=== PATIENT | female | born 1940 | race Caucasian/White ===

== ENCOUNTER 2017-07-25 23:37 | Observation (INO) | payer MEDICARE ==
--- OUTSIDE RECORDS SUMMARY | 2017-07-25 23:47 | XMS REPORT ---
:1940 External Reference #:[id number] Author Organization [facility] Address [address] [address] Phone [phone] Care Team Providers Name Role Phone Sonali Foster MD Primary Care Physician Unavailable Payers Type Date Identification Numbers Payment Provider Subscriber Health Maintenance Policy Number: Medicare Blue Ppo [facility] ([facility]) [id number] PayID: [id number] [facility] [address] [address] [address] Health Maintenance Effective: Policy Number: Medicare Do IT [employer] [facility] [address] ([facility]) 05/07/2011 [id number] [facility] Expires: 08/06/2014 PayID: [id number] [facility] [id number] [address] [id number] Problems Date Description Provider Status Onset: 08/12/2011 Acquired trigger finger Mavis Flower M.D. Active Onset: 08/12/2011 Personal history of primary Lizbet Christian M.D. 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 Active Onset: 08/12/2011 Generalized anxiety disorder Lizbet Christian M.D. Active Onset: 06/28/2016 History of malignant basal cell Sonali Foster M.D. Active neoplasm of skin Note: Anand Burks Onset: 06/28/2016 Hyperlipidemia Sonali Foster M.D. Active Onset: 10/25/2016 Lymphocytic-plasmacytic colitis Sonali Foster M.D. Active Onset: 12/20/2016 Osteopenia Sonali Foster M.D. Active Onset: 11/09/2011 Diarrhea Ana Krzysztof, Resolved N.P. 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 Cigarette Use Never Smoked Cigarettes ETOH Use Rarely consumes alcohol Smoking Patient has never smoked Exercise Type/Frequency Exercises regularly General Hx Text retired att [place] cig no etoh occas exercise walk no illegal drugs caffiene 1 cup Allergies, Adverse Reactions, Alerts Date Description Reaction Status Severity Comments 06/02/2011 NKDA active Medications Medication Date Status Form Strength Qnty SIG Indications Ordering Provider Memantine HCL 10/10 Active Tablets 10mg 180ta 1 by bs mouth two yunior Brown MD daily Donepezil HCL 12/25 Active Tablets 10mg 90tab 1 by Yudi El s mouth Kacy every day M.DEl Simvastatin 01/09 Active Tablets 20mg 90tab Take 1 Sonali /2012 s Tablet Cristian Every Day M.DEl Senior Multivitamin Active Tablets one by Unknown Plus / mouth every day Fish Oil Active Capsules 1200mg 1 po qd Citalopram Active Tablets 40mg 90tab take 1 Sonali Hydrobromide s tablet by cayetano Foster M.DEl every day Pepto-Bismol Active Tablets 262mg Replaced with Budestero ne---2-3 tabs bid Vitamin D-3 Active Capsules 1000Unit 2 by Unknown / mouth every day Budesonide Active Caps DR 3mg one tab Issue, Part bid MARY Avila Azithromycin 07/06 Hx Tablets 250mg 6tabs take 2 J40 tab on Foster, - day 1 M.D. 07/11 then tab daily x 4 days Azithromycin 12/27 Hx Tablets 250mg 6tabs take 2 J40 tab on Foster, - day 1 M.D. 07/06 then tab daily x 4 days Donepezil HCL 09/22 Hx Tablets 5mg 90tab 1 every Yudi Herrera s day Neeraj Woodruff M.D. 12/05 Ciprofloxacin HCL 03/15 Hx Tablets 250mg 14tab take one R35.0 s tablet Johnny, WARM IN WORKER - twice a 03/25 day for days. Trisha Marcum 01/12 Hx Capsules 100mg 14cap 1 tab by J20.9 s mouth Foster, - daily for M.D. 03/15 Azithromycin 01/12 Hx Tablets 250mg 6tabs take 2 J20.9 tab on Foster, - day 1 M.D. 03/15 then tab daily x 4 days Hydrochlorothiazide 10/14 Hx Tablets 25mg 14tab 1 by R42 s mouth Gino, - every day M.D. 01/12 Vitamin D 10/07 Hx Tablets 1000Unit 2 tab Lizbet (Cholecalciferol) each day Gino, - by mouth M.D. 07/06 after 8 weeks. Meclizine HCL 10/05 Hx Tablets 25mg 30tab 1 tab by R42 s mouth deon Christian, - per day M.D. 06/27 Tamiflu 09/04 Hx Capsules 75mg 10cap 1 by R50.9 s mouth Gino, - twice a M.D. Ciprofloxacin HCL 09/04 Hx Tablets 250mg 10tab one by N39.0 s mouth Gino, - twice a M.D. 09/08 day for days Vitamin D3 06/19 Hx Capsules [id number] 8caps 1 tab by Lizbet mouth Gino, - once per M.D. 10/07 week, weeks, then follow up for blood test Meclizine HCL 02/13 Hx Tablets 25mg 30tab 1 tab by 780.4 Lizbet /2014 s mouth deon Christian, - per day M.D. 06/07 Namenda XR 12/26 Hx Caps ER 28mg 90cap 1 by R41.1 Yudi Herrera 24HR s mouth Kacy, - every day M.D. 10/09 Donepezil HCL 06/20 Hx Tablets 5mg 180ta 10 mgs by Yudi Herrera Neeraj Nuñez every day Tan 12/25 directed Omeprazole 01/30 Hx Capsules 40mg 180ca 1 po bid 530.81 Neeraj Tilley M.D. 01/18 Ferrous Gluconate 01/25 Hx 240mg 30uni 1 qd 285.8 Neeraj Cabrera M.D. 03/30 Ferrous Gluconate 01/25 Hx Tablets 225(27Fe) 60tab 1 tab po 285.8 mg s every day Neeraj Christian M.D. 12/24 Crestor 10/10 Hx Tablets 10mg 30tab 1 po qd Neeraj Cervantes M.D. 10/10 Simvastatin 10/10 Hx Tablets 10mg 90tab 1 po qhs Neeraj Cervantes M.D. 01/09 Augmentin 08/16 Hx Tablets 875-125mg 20tab 1 po 2x s per day Neeraj Christian M.D. 11/08 Pertussin 8 Hour 08/12 Hx Syrup 15mg/5ML using generic Neeraj Christian M.D. 11/08 Two TBLS at night. Donepezil HCL Hx Tablets 10mg 30tab po qpm Unknown / s - 09/25 Anastrozole Hx Tablets 1mg 90tab 1 po qd Lizbet /0000 Neeraj Cervantes M.D. 01/25 Lisinopril Hx Tablets 5mg 90tab 1 by Sonali /0000 eduard Foster, - every day Tan 06/07 Aspirin Hx Chewtabs 81mg 100un 1 po qd Unknown / its - 07/19 Calcium 500/D Hx Chewtabs 500-400mg 1 po pm Unknown / -Unit - 07/19 Fish Oil Hx Capsules 1200mg 1 po 3x a Unknown day - 07/19 Namenda Hx Tablets 10mg 180ta 1 po bid Yudi M. Neeraj May M.D. 06/07 Calcium 500/Vitamin Hx Tablets 500-400mg 60tab 1 po qd Unknown D3 /0000 -Unit s - 06/07 Ferrous Gluconate Hx Tablets 4O 100ta 1 by Unknown /0000 bs mouth - every day 12/05 Tylenol Hx Tablets 500mg as needed Unknown /0000 - 10/14 Day Time/Nite Time Hx Misc (Liquid) Unknown Cold & Flu /0000 Relief - 06/27 Loperamide HCL Hx Capsules 2mg take one Sonali / capsule Foster, - by mouth M.D. 12/05 every hours as needed Budesonide Hx Caps DR 3mg 3 by Unknown / Part mouth - every day 12/27 Medications Administered in Office Medication Date Status Form Strength Qnty SIG Indications Ordering Provider Celestone 3 Administered Injection Mavis mg and 3mg 011 Tan Flower Celestone 3 Administered Injection Moravian H. mg and 3mg 011 Kathya, R.P.A.-C Celestone 3 Administered Injection Moravian H. mg and 3mg 011 Mckeithfannie, R.P.A.-C Immunizations CPT Code Status Date Vaccine Lot # [id number] Given 04/25/2017 Influenza Virus Vaccine, Quadrivalent, Split, [id number] Preservative Free [id number] Given 06/28/2016 Pneumonia Vaccine [id number] 39232 Given 05/20/2016 Influenza Virus Vaccine, Quadrivalent, Split [id number] Virus, [place] Use [address] Given 06/18/2015 Influenza Virus Vaccine, Quadrivalent, Split, [id number] Preservative Free 08146 Given 06/18/2015 Pneumococcal Conjugate Vaccine 13 Valent For [id number] Intramuscular Use 22668 Given 06/17/2014 Flu Vaccine Split Virus Preservative Free For Indiv 3Yr Older [id number] Given 06/17/2014 Flu Vaccine Split Virus Preservative Free For [id number] Indiv 3Yr Older 91756 Given 05/21/2013 Flu Vaccine Split Virus Preservative Free For [id number] Indiv 3Yr Older 03980 Given 02/26/2013 Tdap - Tetanus/Diptheria/Acellular Pertussis [id number] 74399 Given 12/20/2012 Zoster (Zostavax) [id number] Q2038 Given 05/04/2012 Fluzone Vaccine [id number] Given 06/02/2011 Fluzone Vaccine Vital Signs Date Vital Result Comment 07/18/2017 Height 62 inches 5'2" Weight 140.00 lb Heart Rate 70 /min BP Systolic Sitting 132 mmHg BP Diastolic Sitting 80 mmHg Respiratory Rate 16 /min BMI (Body Mass Index) 25.6 kg/m2 07/06/2017 Weight 141.38 lb Heart Rate 68 /min BP Systolic Sitting 126 mmHg BP Diastolic Sitting 68 mmHg Body Temperature 98.0 F O2 % BldC Oximetry 97 % 12/27/2016 Height 62 inches 5'2" Weight 140.00 lb Heart Rate 60 /min BP Systolic Sitting 150 mmHg BP Diastolic Sitting 82 mmHg Respiratory Rate 14 /min BMI (Body Mass Index) 25.6 kg/m2 12/27/2016 Weight 142.00 lb Heart Rate 64 /min BP Systolic Sitting 130 mmHg BP Diastolic Sitting 82 mmHg Respiratory Rate 14 /min Body Temperature 97.0 F O2 % BldC Oximetry 98 % 12/05/2016 Weight 139.00 lb Heart Rate 67 /min BP Systolic 120 mmHg BP Diastolic 78 mmHg Body Temperature 98.7 F O2 % BldC Oximetry 97 % 08/25/2016 Weight 143.00 lb Heart Rate 54 /min BP Systolic Sitting 130 mmHg BP Diastolic Sitting 84 mmHg Respiratory Rate 15 /min Body Temperature 97.0 F O2 % BldC Oximetry 98 % 06/28/2016 Weight 144.00 lb Heart Rate 60 /min BP Systolic Sitting 128 mmHg BP Diastolic Sitting 86 mmHg Body Temperature 98.0 F O2 % BldC Oximetry 98 % 06/28/2016 Height 63 inches 5'3" Weight 144.00 lb Heart Rate 64 /min BP Systolic Sitting 132 mmHg BP Diastolic Sitting 78 mmHg BMI (Body Mass Index) 25.5 kg/m2 03/15/2016 Weight 147.00 lb Heart Rate 52 /min BP Systolic Sitting 122 mmHg BP Diastolic Sitting 82 mmHg Respiratory Rate 15 /min Body Temperature 98.2 F O2 % BldC Oximetry 98 % 01/13/2016 Weight 148.00 lb Heart Rate 65 /min BP Systolic Sitting 128 mmHg BP Diastolic Sitting 78 mmHg Respiratory Rate 16 /min Body Temperature 98.0 F O2 % BldC Oximetry 95 % 12/24/2015 Height 63 inches 5'3" Weight 145.00 lb Heart Rate 93 /min BP Systolic Sitting 144 mmHg BP Diastolic Sitting 79 mmHg Body Temperature 97.7 F BMI (Body Mass Index) 25.7 kg/m2 12/24/2015 Height 63 inches 5'3" Weight 145.00 lb Heart Rate 68 /min BP Systolic Sitting 118 mmHg BP Diastolic Sitting 86 mmHg Respiratory Rate 14 /min BMI (Body Mass Index) 25.7 kg/m2 10/15/2015 Height 63 inches 5'3" Weight 141.00 lb Heart Rate 71 /min BP Systolic 133 mmHg BP Diastolic 81 mmHg Body Temperature 98.6 F O2 % BldC Oximetry 95 % BMI (Body Mass Index) 25.0 kg/m2 09/08/2015 Height 63 inches 5'3" Weight 141.00 lb Heart Rate 54 /min BP Systolic Sitting 94 mmHg BP Diastolic Sitting 68 mmHg Body Temperature 97.1 F O2 % BldC Oximetry 98 % BMI (Body Mass Index) 25.0 kg/m2 09/04/2015 Height 63 inches 5'3" Weight 142.00 lb Heart Rate 83 /min BP Systolic 138 mmHg BP Diastolic 73 mmHg Body Temperature 100.1 F O2 % BldC Oximetry 98 % BMI (Body Mass Index) 25.2 kg/m2 06/25/2015 Height 63 inches 5'3" Weight 143.00 lb Heart Rate 68 /min BP Systolic Sitting 130 mmHg BP Diastolic Sitting 74 mmHg Respiratory Rate 16 /min BMI (Body Mass Index) 25.3 kg/m2 06/18/2015 Height 63 inches 5'3" Weight 142.00 lb Heart Rate 69 /min BP Systolic 122 mmHg BP Diastolic 68 mmHg Body Temperature 97.8 F O2 % BldC Oximetry 98 % BMI (Body Mass Index) 25.2 kg/m2 12/18/2014 Height 63 inches 5'3" Weight 142.00 lb Heart Rate 64 /min BP Systolic Sitting 138 mmHg BP Diastolic Sitting 78 mmHg Respiratory Rate 16 /min BMI (Body Mass Index) 25.2 kg/m2 12/16/2014 Height 63 inches 5'3" Weight 143.00 lb Heart Rate 73 /min BP Systolic Sitting 132 mmHg BP Diastolic Sitting 70 mmHg Body Temperature 97.9 F O2 % BldC Oximetry 95 % BMI (Body Mass Index) 25.3 kg/m2 07/24/2014 Weight 144.00 lb Heart Rate 64 /min BP Systolic Sitting 120 mmHg BP Diastolic Sitting 66 mmHg Body Temperature 97.3 F 06/26/2014 Height 62.5 inches 5'2.50" Weight 139.00 lb Heart Rate 68 /min BP Systolic Sitting 122 mmHg BP Diastolic Sitting 60 mmHg Respiratory Rate 16 /min BMI (Body Mass Index) 25.0 kg/m2 02/13/2014 Weight 141.00 lb Heart Rate 66 /min BP Systolic Sitting 128 mmHg BP Diastolic Sitting 74 mmHg 02/04/2014 Weight 140.00 lb Heart Rate 68 /min BP Systolic Sitting 132 mmHg BP Diastolic Sitting 80 mmHg 12/26/2013 Height 62.5 inches 5'2.50" Weight 137.00 lb Heart Rate 76 /min BP Systolic Sitting 122 mmHg BP Diastolic Sitting 68 mmHg Respiratory Rate 16 /min BMI (Body Mass Index) 24.7 kg/m2 12/24/2013 Height 62.5 inches 5'2.50" Weight 140.25 lb Heart Rate 77 /min BP Systolic Sitting 104 mmHg BP Diastolic Sitting 56 mmHg O2 % BldC Oximetry 95 % BMI (Body Mass Index) 25.2 kg/m2 12/12/2013 Height 62.5 inches 5'2.50" Weight 142.50 lb Heart Rate 60 /min BP Systolic Sitting 110 mmHg BP Diastolic Sitting 58 mmHg Body Temperature 98.0 F O2 % BldC Oximetry 95 % BMI (Body Mass Index) 25.6 kg/m2 08/22/2013 Height 62.5 inches 5'2.50" Weight 139.00 lb Heart Rate 72 /min BP Systolic Sitting 117 mmHg BP Diastolic Sitting 79 mmHg BMI (Body Mass Index) 25.0 kg/m2 06/10/2013 Heart Rate 70 /min BP Systolic Sitting 130 mmHg BP Diastolic Sitting 70 mmHg Respiratory Rate 18 /min 05/21/2013 Weight 139.00 lb Heart Rate 72 /min BP Systolic Sitting 121 mmHg BP Diastolic Sitting 74 mmHg 02/26/2013 Weight 135.00 lb Heart Rate 52 /min BP Systolic Sitting 112 mmHg BP Diastolic Sitting 62 mmHg 01/18/2013 Weight 134.75 lb Heart Rate 59 /min BP Systolic Sitting 113 mmHg BP Diastolic Sitting 68 mmHg 12/20/2012 Weight 133.25 lb Heart Rate 65 /min BP Systolic Sitting 112 mmHg BP Diastolic Sitting 68 mmHg 12/04/2012 Height 62.5 inches 5'2.50" Weight 131.50 lb Heart Rate 66 /min BP Systolic Sitting 112 mmHg BP Diastolic Sitting 67 mmHg BMI (Body Mass Index) 23.7 kg/m2 07/19/2012 Height 62.5 inches 5'2.50" Weight 130.00 lb Heart Rate 68 /min BP Systolic Sitting 112 mmHg BP Diastolic Sitting 56 mmHg BMI (Body Mass Index) 23.4 kg/m2 03/30/2012 Height 62.5 inches 5'2.50" Weight 140.00 lb Heart Rate 68 /min BP Systolic Sitting 114 mmHg BP Diastolic Sitting 58 mmHg BMI (Body Mass Index) 25.2 kg/m2 01/31/2012 Height 62.5 inches 5'2.50" Weight 137.00 lb Heart Rate 69 /min BP Systolic Sitting 115 mmHg BP Diastolic Sitting 64 mmHg BMI (Body Mass Index) 24.7 kg/m2 01/26/2012 Height 62.5 inches 5'2.50" Weight 130.00 lb Heart Rate 74 /min BP Systolic Sitting 110 mmHg BP Diastolic Sitting 70 mmHg BMI (Body Mass Index) 23.4 kg/m2 12/02/2011 Height 62.5 inches 5'2.50" Weight 139.00 lb Heart Rate 76 /min BP Systolic Sitting 144 mmHg BP Diastolic Sitting 64 mmHg BMI (Body Mass Index) 25.0 kg/m2 11/09/2011 Height 62.5 inches 5'2.50" Weight 142.00 lb Heart Rate 67 /min BP Systolic Sitting 113 mmHg BP Diastolic Sitting 65 mmHg Body Temperature 98.0 F BMI (Body Mass Index) 25.6 kg/m2 10/06/2011 Height 62.5 inches 5'2.50" Weight 146.00 lb Heart Rate 68 /min BP Systolic Sitting 142 mmHg BP Diastolic Sitting 80 mmHg BMI (Body Mass Index) 26.3 kg/m2 08/12/2011 Height 62.5 inches 5'2.50" Weight 146.25 lb Heart Rate 96 /min BP Systolic Sitting 130 mmHg BP Diastolic Sitting 64 mmHg Body Temperature 99.9 F BMI (Body Mass Index) 26.3 kg/m2 06/02/2011 Height 63 inches 5'3" Weight 147.00 lb Heart Rate 64 /min BP Systolic Sitting 139 mmHg BP Diastolic Sitting 82 mmHg BMI (Body Mass Index) 26.0 kg/m2 Results Test Date Test Result H/L Range Note Pthi 12/24/2016 Calcium (PTH Intact) 8.6 mg/dL 8.6-10.3 PTH Intact 7.7 pmol/L 1.3-9.3 Comp Metabolic Panel 12/24/2016 Sodium 141 mmol/L 133-145 Potassium 4.2 mmol/L 3.5-5.0 Chloride 106 mmol/L 101-111 Co2 Carbon Dioxide 30 mmol/L 22-32 Anion Gap 5 mmol/L 2-11 Glucose 78 mg/dL 70-100 Blood Urea Nitrogen 13 mg/dL 6-24 Creatinine 0.82 mg/dL 0.51-0.95 BUN/Creatinine Ratio 15.9 8-20 Calcium 8.7 mg/dL 8.6-10.3 Total Protein 6.6 g/dL 6.4-8.9 Albumin 3.7 g/dL 3.2-5.2 Globulin 2.9 g/dL 2-4 Albumin/Globulin Ratio 1.3 1-3 Total Bilirubin 0.50 mg/dL 0.2-1.0 Alkaline Phosphatase 58 U/L 34-104 Alt 18 U/L 7-52 Ast 16 U/L 13-39 Egfr Non- 68.0 >60 Egfr 87.4 >60 1 Lipid Profile (Trig/Chol/HDL) 12/24/2016 Triglycerides 72 mg/dL 2 Cholesterol 179 mg/dL 3 HDL Cholesterol 69.1 mg/dL 4 LDL Cholesterol 96 mg/dL 5 Laboratory test 12/24/2016 Vitamin D Total 27.1 ng/mL Low 30-50 finding 25(Oh) Laboratory test 10/10/2016 Surgical Pathology SEE RESULT BELOW 6, 7 finding Laboratory test 08/29/2016 C Difficile PCR SEE RESULT BELOW 8 finding O&P Ova & 08/26/2016 Ova Parasite SEE RESULT BELOW 9 Parasites Full [place] Full Laboratory test 08/26/2016 Stool Culture SEE RESULT BELOW 10 finding Parasitic Examination See Comment 11 Urinalysis Profile 04/14/2016 Urine Color Yellow Urine Appearance Clear Urine Specific [place] 1.009 Low 1.010-1.030 Urine pH 8.0 5-9 Urine Urobilinogen Negative Negative Urine Ketones Negative Negative Urine Protein Negative Negative Urine Leukocytes 1+ Negative Urine Blood Negative Negative * * Negative 12 Urine Nitrite Negative Negative Urine Bilirubin Negative Negative Urine Glucose Negative Negative Urine White Blood Cell Trace(0-5/hpf) Absent Urine Red Blood Cell Trace(0-2/hpf) Absent Urine Bacteria Absent Absent Urine Squamous Epithelial Cell Present Absent Urine Culture And 04/14/2016 Urine Culture SEE RESULT BELOW 13 Sensitivities Urine Culture And 03/15/2016 Urine Culture SEE RESULT BELOW 14 Sensitivities Ua Routine 03/15/2016 Ua Specific [place] 1.005 Ua PH 8 Ua Color yellow Ua Appera cloudy Ua WBC xlg Ua Protein neg Ua Glucose neg Ua Ketones neg Ua Bilirubin neg Ua Urobilinogen neg Ua Nitrite n eg Ua Occult Blood large Lipid Profile (Trig/Chol/HDL) 01/11/2016 Triglycerides 103 mg/dL 15 Cholesterol 169 mg/dL 16 HDL Cholesterol 60.3 mg/dL 17 LDL Cholesterol 88 mg/dL 18 Laboratory test 01/11/2016 Vitamin D Total 33.4 ng/mL 30-50 19 finding 25(Oh) Laboratory test 11/06/2015 Surgical Pathology SEE RESULT BELOW 20 finding CBC Auto Diff 10/15/2015 White Blood Count 6.1 10^3/uL 3.5-10.8 Red Blood Count 4.44 10^6/uL 4.0-5.4 Hemoglobin 13.1 g/dL 12.0-16.0 Hematocrit 38 % 35-47 Mean Corpuscular Volume 86 fL 80-97 Mean Corpuscular Hemoglobin 30 pg 27-31 Mean Corpuscular HGB Conc 34 g/dL 31-36 Red Cell Distribution Width 15 % 10.5-15 Platelet Count 281 10^3/uL 150-450 Mean Platelet Volume 8 um3 7.4-10.4 Abs Neutrophils 3.4 10^3/uL 1.5-7.7 Abs Lymphocytes 1.7 10^3/uL 1.0-4.8 Abs Monocytes 0.8 10^3/uL 0-0.8 Abs Eosinophils 0.2 10^3/uL 0-0.6 Abs Basophils 0.1 10^3/uL 0-0.2 Abs Nucleated RBC 0.01 10^3/uL Granulocyte % 56.3 % 38-83 Lymphocyte % 27.3 % 25-47 Monocyte % 12.4 % High 1-9 Eosinophil % 3.1 % 0-6 Basophil % 0.9 % 0-2 Nucleated Red Blood Cells % 0.1 Comp Metabolic Panel 10/15/2015 Sodium 139 mmol/L 133-145 Potassium 4.2 mmol/L 3.5-5.0 Chloride 100 mmol/L Low 101-111 Co2 Carbon Dioxide 31 mmol/L 22-32 Anion Gap 8 mmol/L 2-11 Glucose 83 mg/dL 70-100 Blood Urea Nitrogen 12 mg/dL 6-24 Creatinine 0.78 mg/dL 0.51-0.95 BUN/Creatinine Ratio 15.4 8-20 Calcium 9.6 mg/dL 8.6-10.3 Total Protein 6.9 g/dL 6.4-8.9 Albumin 4.0 g/dL 3.2-5.2 Globulin 2.9 g/dL 2-4 Albumin/Globulin Ratio 1.4 1-3 Total Bilirubin 0.60 mg/dL 0.2-1.0 Alkaline Phosphatase 66 U/L 34-104 Alt 16 U/L 7-52 Ast 18 U/L 13-39 Egfr Non- 72.2 >60 Egfr 92.8 >60 21 Laboratory test finding 10/15/2015 TSH (Thyroid Stim Horm) 4.73 ?IU/mL 0.34-5.60 Iron & Iron Binding 10/15/2015 Iron 81 g/dL 50-212 Capacity Unsaturated Iron Binding 251 g/dL Total Iron Binding Capacity 332 g/dL 250-450 % Iron Saturation 24 % 15-55 Rapid Influenza A & B 09/04/2015 Influenza A Molecular NEGATIVE Negative 22 Molecular Influenza B Molecular NEGATIVE Negative Laboratory test finding 09/04/2015 Influenza A & B SEE RESULT BELOW 23 Request Ua And Culture 09/04/2015 Urine Culture And SEE RESULT BELOW 24 Sensitivity Sensitivities Urinalysis Profile 09/04/2015 Urine Color Yellow Urine Appearance Cloudy Urine Specific [place] 1.016 1.010-1.030 Urine pH 5.0 5-9 Urine Urobilinogen Negative Negative Urine Ketones Negative Negative Urine Protein Negative Negative Urine Leukocytes 1+ Negative Urine Blood 1+ Negative * * Negative 25 Urine Nitrite Negative Negative Urine Bilirubin Negative Negative Urine Glucose Negative Negative Urine White Blood Cell 1+(6-10/hpf) Absent Urine Red Blood Cell 1+(3-5/hpf) Absent Urine Bacteria Absent Absent Urine Squamous Epithelial Cell Present Absent Urine Amorphous Crystals Present Absent Ua Routine 09/04/2015 Ua Specific [place] 1.020 Ua PH 5 Ua Color yellow Ua Appera cloudy Ua WBC ++ Ua Protein trace Ua Glucose neg Ua Ketones neg Ua Bilirubin neg Ua Urobilinogen normal Ua Nitrite neg Ua Occult Blood about 50 Laboratory test 08/17/2015 Vitamin D Total 25(Oh) 61.9 ng/mL High 30-50 finding Laboratory test 06/18/2015 Vitamin D Total 25(Oh) 25.0 ng/mL Low 30-50 finding Lipid Profile 12/10/2014 Triglycerides 82 mg/dL 26, 27 (Trig/Chol/HDL) Cholesterol 166 mg/dL 26, 28 HDL Cholesterol 62.9 mg/dL 26, 29 LDL Cholesterol 87 mg/dL 26, 30 Comp Metabolic Panel 12/10/2014 Sodium 138 mmol/L 133-145 26 Potassium 4.1 mmol/L 3.5-5.0 26 Chloride 105 mmol/L 101-111 26 Co2 Carbon Dioxide 26 mmol/L 22-32 26 Anion Gap 7 mmol/L 2-11 26 Glucose 90 mg/dL 70-100 26 Blood Urea Nitrogen 13 mg/dL 6-24 26 Creatinine 0.86 mg/dL 0.51-0.95 26 BUN/Creatinine Ratio 15.1 8-20 26 Calcium 8.9 mg/dL 8.6-10.3 26 Total Protein 6.8 g/dL 6.4-8.9 26 Albumin 4.1 g/dL 3.2-5.2 26 Globulin 2.7 g/dL 2-4 26 Albumin/Globulin Ratio 1.5 1-3 26 Total Bilirubin 0.70 mg/dL 0.2-1.0 26 Alkaline Phosphatase 53 U/L 34-104 26 Alt 15 U/L 7-52 26 Ast 18 U/L 13-39 26 Egfr Non- 64.7 >60 26 Egfr 83.2 >60 26, 31 CBC Auto Diff 12/10/2014 White Blood Count 5.0 10^3/uL 4.8-10.8 26 Red Blood Count 4.55 10^6/uL 4.0-5.4 26 Hemoglobin 13.9 g/dL 12.0-16.0 26 Hematocrit 41 % 35-47 26 Mean Corpuscular Volume 89 fL 80-97 26 Mean Corpuscular Hemoglobin 31 pg 27-31 26 Mean Corpuscular HGB Conc 34 g/dL 31-36 26 Red Cell Distribution Width 14 % 10.5-15 26 Platelet Count 250 10^3/uL 150-450 26 Mean Platelet Volume 8 um3 7.4-10.4 26 Abs Neutrophils 3.0 10^3/uL 1.5-7.7 26 Abs Lymphocytes 1.2 10^3/uL 1.0-4.8 26 Abs Monocytes 0.6 10^3/uL 0-0.8 26 Abs Eosinophils 0.1 10^3/uL 0-0.6 26 Abs Basophils 0.1 10^3/uL 0-0.2 26 Abs Nucleated RBC 0 10^3/uL 26 Granulocyte % 60.2 % 38-83 26 Lymphocyte % 23.9 % Low 25-47 26 Monocyte % 12.5 % High 1-9 26 Eosinophil % 2.4 % 0-6 26 Basophil % 1.0 % 0-2 26 Nucleated Red Blood Cells % 0 26 CBC With Manual Diff 01/31/2014 White Blood Count 5.3 10^3/uL 4.8-10.8 Red Blood Count 4.41 10^6/uL 4.0-5.4 Hemoglobin 13.4 g/dL 12.0-16.0 Hematocrit 39 % 35-47 Mean Corpuscular Volume 89 fL 80-97 Mean Corpuscular Hemoglobin 30 pg 27-31 Mean Corpuscular HGB Conc 34 g/dL 31-36 Red Cell Distribution Width 13 % 10.5-15 Platelet Count 236 10^3/uL 150-450 Mean Platelet Volume 8 um3 7.4-10.4 Abs Neutrophils 2.8 10^3/uL 1.5-7.7 Abs Lymphocytes 1.7 10^3/uL 1.0-4.8 Abs Monocytes 0.6 10^3/uL 0-0.8 Abs Eosinophils 0.2 10^3/uL 0-0.6 Abs Basophils 0 10^3/uL 0-0.2 Abs Nucleated RBC 0 10^3/uL Neutrophil % 63 % 38-83 Lymphocytes % 25 % 25-47 Monocytes % 8 % 0-13 Eosinophils % 3 % 0-6 Reactive Lymph % 1 % 0-6 RBC Morphology Normal Normal Laboratory test finding 01/31/2014 Ferritin 41.0 ng/mL 11-307 Vitamin D, 25 Hydroxy 12/12/2013 25-Hydroxy Vitamin D2 <4.0 ng/mL 25-Hydroxy Vitamin D3 46 ng/mL 25-Hydroxy Vitamin D Total 46 ng/mL 32 Vitamin D, 25 Hydroxy 08/26/2013 25-Hydroxy Vitamin D2 <4.0 ng/mL 25-Hydroxy Vitamin D3 28 ng/mL 25-Hydroxy Vitamin D Total 28 ng/mL 33 Lipid Profile (Trig/Chol/HDL) 08/26/2013 Triglycerides 47 mg/dL 40-200 Cholesterol 171 mg/dL Less than 200 HDL Cholesterol 74 mg/dL High 40-60 34 Cholesterol/HDL Ratio 2.3 Average 1-4.44 LDL Cholesterol 87.6 Less Than 100 35 Comp Metabolic Panel 08/22/2013 Sodium 139 mmol/L 133-145 Potassium 4.0 mmol/L 3.5-5.0 Chloride 103 mmol/L 101-111 Co2 Carbon Dioxide 28.0 mmol/L 22-32 Anion Gap 8.0 mmol/L 2-11 Glucose 104 mg/dL High 70-100 Blood Urea Nitrogen 14 mg/dL 6-24 Creatinine 0.90 mg/dL 0.50-1.40 BUN/Creatinine Ratio 15.6 8-20 Calcium 9.5 mg/dL 8.1-9.9 Total Protein 6.4 g/dL 6.2-8.1 Albumin 4.0 g/dL 3.2-5.2 Globulin 2.4 g/dL 2-4 Albumin/Globulin Ratio 1.7 1-3 Total Bilirubin 0.9 mg/dL 0.4-1.5 Alkaline Phosphatase 58 U/L 30-110 Alt 18 U/L 14-54 Ast 22 U/L 12-42 Egfr Non- 61.5 >60 Egfr 79.2 >60 36 CBC With Manual Diff 08/22/2013 White Blood Count 6.0 10^3/uL 4.8-10.8 Red Blood Count 4.60 10^6/uL 4.0-5.4 Hemoglobin 14.1 g/dL 12.0-16.0 Hematocrit 40 % 35-47 Mean Corpuscular Volume 87 fL 80-97 Mean Corpuscular Hemoglobin 31 pg 27-31 Mean Corpuscular HGB Conc 35 g/dL 31-36 Red Cell Distribution Width 14 % 10.5-15 Platelet Count 260 10^3/uL 150-450 Mean Platelet Volume 9 um3 7.4-10.4 Abs Neutrophils 4.0 10^3/uL 1.5-7.7 Abs Lymphocytes 1.1 10^3/uL 1.0-4.8 Abs Monocytes 0.6 10^3/uL 0-0.8 Abs Eosinophils 0.1 10^3/uL 0-0.6 Abs Basophils 0.1 10^3/uL 0-0.2 Abs Nucleated RBC 0 10^3/uL Neutrophil % 73 % 38-83 Band % 4 % 0-8 Lymphocytes % 15 % Low 25-47 Monocytes % 7 % 0-13 Eosinophils % 1 % 0-6 RBC Morphology Normal Normal CBC Auto Diff 05/21/2013 White Blood Count 6.7 10^3/uL 4.8-10.8 Red Blood Count 4.32 10^6/uL 4.0-5.4 Hemoglobin 13.5 g/dL 12.0-16.0 Hematocrit 39 % 35-47 Mean Corpuscular Volume 90 fL 80-97 Mean Corpuscular Hemoglobin 31 pg 27-31 Mean Corpuscular HGB Conc 35 g/dL 31-36 Red Cell Distribution Width 14 % 10.5-15 Platelet Count 257 10^3/uL 150-450 Mean Platelet Volume 9 um3 7.4-10.4 Abs Neutrophils 4.3 10^3/uL 1.5-7.7 Abs Lymphocytes 1.4 10^3/uL 1.0-4.8 Abs Monocytes 0.8 10^3/uL 0-0.8 Abs Eosinophils 0.1 10^3/uL 0-0.6 Abs Basophils 0.1 10^3/uL 0-0.2 Abs Nucleated RBC 0 10^3/uL Granulocyte % 64.9 % 38-83 Lymphocyte % 20.4 % Low 25-47 Monocyte % 11.7 % High 1-9 Eosinophil % 1.8 % 0-6 Basophil % 1.2 % 0-2 Nucleated Red Blood Cells % 0 Laboratory test 05/21/2013 TSH (Thyroid 2.94 miu/mL 0.34-5.60 finding Stimulating Horm) Laboratory test 01/18/2013 Surgical Pathology RUN DATE: finding <SEE NOTE> Comp Metabolic Panel 12/11/2012 Sodium 138 mmol/L 133-145 Potassium 4.1 mmol/L 3.5-5.0 Chloride 104 mmol/L 101-111 Co2 Carbon Dioxide 29.0 mmol/L 22-32 Anion Gap 5.0 mmol/L 2-11 Glucose 93 mg/dL 70-100 Blood Urea Nitrogen 17 mg/dL 6-24 Creatinine 0.80 mg/dL 0.50-1.40 BUN/Creatinine Ratio 21.3 High 8-20 Calcium 9.1 mg/dL 8.1-9.9 Total Protein 6.2 g/dL 6.2-8.1 Albumin 3.6 g/dL 3.2-5.2 Globulin 2.6 g/dL 2-4 Albumin/Globulin Ratio 1.4 1-3 Total Bilirubin 0.5 mg/dL 0.4-1.5 Alkaline Phosphatase 71 U/L 30-110 Alt 26 U/L 14-54 Ast 23 U/L 12-42 Egfr Non- 70.7 >60 Egfr 90.9 >60 38 Lipid Profile (Trig/Chol/HDL) 12/11/2012 Triglycerides 49 mg/dL 40-200 Cholesterol 168 mg/dL Less than 200 HDL Cholesterol 63 mg/dL High 40-60 39 Cholesterol/HDL Ratio 2.7 Average 1-4.44 LDL Cholesterol 95.2 mg/dL Less Than 100 40 Laboratory test finding 12/11/2012 Ferritin 43 ng/mL 11-307 CBC Auto Diff 12/11/2012 White Blood Count 5.2 10^3/uL 4.8-10.8 Red Blood Count 4.09 10^6/uL 4.0-5.4 Hemoglobin 12.6 g/dL 12.0-16.0 Hematocrit 37 % 35-47 Mean Corpuscular Volume 89 fL 80-97 Mean Corpuscular Hemoglobin 31 pg 27-31 Mean Corpuscular HGB Conc 34 g/dL 31-36 Red Cell Distribution Width 14 % 10.5-15 Platelet Count 218 10^3/uL 150-450 Mean Platelet Volume 8 um3 7.4-10.4 Abs Neutrophils 2.6 10^3/uL 1.5-7.7 Abs Lymphocytes 1.8 10^3/uL 1.0-4.8 Abs Monocytes 0.6 10^3/uL 0-0.8 Abs Eosinophils 0.1 10^3/uL 0-0.6 Abs Basophils 0.1 10^3/uL 0-0.2 Abs Nucleated RBC 0 10^3/uL Granulocyte % 49.7 % 38-83 Lymphocyte % 35.1 % 25-47 Monocyte % 12.3 % High 1-9 Eosinophil % 1.9 % 0-6 Basophil % 1.0 % 0-2 Nucleated Red Blood Cells % 0 Comp Metabolic Panel 07/20/2012 Sodium 138 mmol/L 133-145 Potassium 3.8 mmol/L 3.5-5.0 Chloride 102 mmol/L 101-111 Co2 Carbon Dioxide 30.0 mmol/L 22-32 Anion Gap 6.0 mmol/L 2-11 Glucose 112 mg/dL High 70-100 Blood Urea Nitrogen 7 mg/dL 6-24 Creatinine 0.80 mg/dL 0.50-1.40 BUN/Creatinine Ratio 8.8 8-20 Calcium 9.4 mg/dL 8.1-9.9 Total Protein 6.9 g/dL 6.2-8.1 Albumin 4.0 g/dL 3.2-5.2 Globulin 2.9 g/dL 2-4 Albumin/Globulin Ratio 1.4 1-3 Total Bilirubin 0.8 mg/dL 0.4-1.5 Alkaline Phosphatase 72 U/L 30-110 Alt 21 U/L 14-54 Ast 24 U/L 12-42 Egfr Non- 70.7 >60 Egfr 90.9 >60 41 Laboratory test finding 07/20/2012 Ferritin 60 ng/mL 11-307 Laboratory test finding 07/20/2012 Hemoglobin A1c 5.7 % Less than 6.0 42 CBC Auto Diff 07/20/2012 White Blood Count 5.9 10^3/uL 4.8-10.8 Red Blood Count 4.09 10^6/uL 4.0-5.4 Hemoglobin 12.5 g/dL 12.0-16.0 Hematocrit 36 % 35-47 Mean Corpuscular Volume 88 fL 80-97 Mean Corpuscular Hemoglobin 31 pg 27-31 Mean Corpuscular HGB Conc 35 g/dL 31-36 Red Cell Distribution Width 14 % 10.5-15 Platelet Count 241 10^3/uL 150-450 Mean Platelet Volume 8 um3 7.4-10.4 Abs Neutrophils 3.7 10^3/uL 1.5-7.7 Abs Lymphocytes 1.5 10^3/uL 1.0-4.8 Abs Monocytes 0.6 10^3/uL 0-0.8 Abs Eosinophils 0.1 10^3/uL 0-0.6 Abs Basophils 0 10^3/uL 0-0.2 Abs Nucleated RBC 0 10^3/uL Granulocyte % 62.3 % 38-83 Lymphocyte % 24.7 % Low 25-47 Monocyte % 10.1 % High 1-9 Eosinophil % 2.3 % 0-6 Basophil % 0.6 % 0-2 Nucleated Red Blood Cells % 0 Paraneoplastic Evaluation 06/20/2012 Paraneoplastic Ab Interp See Comment 43 Anti-Neuronal Nuclear Ab Type1 Negative titer <1:240 Anti-Neuronal Nuclear Ab Type2 Negative titer <1:240 Anti-Neuronal Nuclear Ab Type3 Negative titer <1:240 Anti-Glial/Neuronal Nuc Ab-1 A Negative titer <1:240 Purkinje Cell Cytoplasm Type 1 Negative titer <1:240 Purkinje Cell Cytoplasm Type 2 Negative titer <1:240 Purkinje Cell Cytoplasm Typ Tr Negative titer <1:240 Amphiphysin Antibody Negative titer <1:240 CRMP-5 IgG Antibody Negative titer 44 Anti-Striated Muscle Antibody Negative titer <1:60 Calcium Channel Binding Ab P/Q 0.00 nmol/L <=0.02 N Type Calcium Channel Binding 0.00 nmol/L <=0.03 ACh Receptor Muscle Binding Ab 0.00 nmol/L <=0.02 AChR Ganglionic Neuronal Ab 0.00 nmol/L <=0.02 Voltage-Gated Potassium Chann 0.00 nmol/L <=0.02 45 RBC Leukoreduced 04/13/2012 Patient Blood Type O POSITIVE Antibody Screen NEGATIVE CBC Auto Diff 03/31/2012 White Blood Count 6.7 CUMM 4.8-10.8 Red Cell Count 4.16 CUMM Low 4.2-5.4 Hemoglobin 12.7 g/dL 12.0-16.0 Hematocrit 36 % 35-47 Mean Corpuscular Volume 87 um3 79-97 Mean Corpuscular Hemoglob 31 pg 27-31 Mean Corpuscular HGB Cone 35 g/dL 32-36 Redcell Distribution WDTH 14 % 10.5-15 Platelet Count 215 CUMM 150-450 Mean Platelet Volume 8.4 um3 7.4-10.4 Gran % 56.8 % 38-83 Lymph % 28.1 % 20-45 Mononuclear % 12.1 % High 1-9 Eosinophil % 2.4 % 0-6 Basophil % 0.6 % 0-2 Abs Lymphs 1.9 1.0-4.8 Abs Mononuclear 0.8 0-0.8 Absolute Neutrophil Count 3.8 1.5-7.7 Abs Eosinophils 0.2 0-0.6 Abs Basophils 0 0-0.2 Laboratory test finding 03/31/2012 Ferritin 44 NG/ML 11.0-307 Lipid Profile (Trig/Chol/HDL) 03/31/2012 Triglyceride 58 mg/dL 40-200 Cholesterol 178 mg/dL Less Than 200 46 High Density Lipoprotein 55 mg/dL 40-60 47 Cholesterol/HDL Ratio 3.24 AVERAGE 1-4.44 Low Density Lipoprotein 111 mg/dL High Less Than 100 48 Comp Metabolic Panel 03/31/2012 Sodium 139 mmol/L 135-145 Potassium 4.3 mmol/L 3.5-5.0 Chloride 106 mmol/L 101-111 Co2 (Carbon Dioxide) 28.0 mmol/L 22-32 Anion Gap 5.0 mmol/L 2-11 49 Glucose 89 mg/dL 70-100 BUN 16 mg/dL 6-24 Creatinine 0.9 mg/dL 0.50-1.40 One Over Creatinine 1.11 BUN/Creatinine Ratio 17.8 8-20 Calcium 9.0 mg/dL 8.1-9.9 Total Protein 6.4 GM/DL 6.2-8.1 Albumin 3.6 GM/DL 3.2-5.2 Globulin 2.8 GM/DL 2-4 Albumin/Globulin Ratio 1.3 1-3 Bilirubin Total 0.7 mg/dL 0.4-1.5 50 Alkaline Phosphatase 70 U/L 30-110 Alt (SGPT) 42 U/L 14-54 Ast (Sgot) 34 U/L 12-42 eGFR Non- 61.9 > 60 eGFR 79.6 > 60 51 Laboratory test finding 01/28/2012 Ferritin 44 NG/ML 11.0-307 CBC Auto Diff 01/27/2012 White Blood Count 5.1 CUMM 4.8-10.8 Red Cell Count 3.70 CUMM Low 4.2-5.4 Hemoglobin 11.1 g/dL Low 12.0-16.0 Hematocrit 32 % Low 35-47 Mean Corpuscular Volume 87 um3 79-97 Mean Corpuscular Hemoglob 30 pg 27-31 Mean Corpuscular HGB Cone 35 g/dL 32-36 Redcell Distribution WDTH 14 % 10.5-15 Platelet Count 254 CUMM 150-450 Mean Platelet Volume 8.1 um3 7.4-10.4 Gran % 52.6 % 38-83 Lymph % 29.3 % 25-47 Mononuclear % 15.1 % High 1-9 Eosinophil % 2.5 % 0-6 Basophil % 0.5 % 0-2 Abs Lymphs 1.5 1.0-4.8 Abs Mononuclear 0.8 0-0.8 Absolute Neutrophil Count 2.7 1.5-7.7 Abs Eosinophils 0.1 0-0.6 Abs Basophils 0 0-0.2 52 Comp Metabolic Panel 01/27/2012 Sodium 137 mmol/L 135-145 Potassium 3.5 mmol/L 3.5-5.0 Chloride 104 mmol/L 101-111 Co2 (Carbon Dioxide) 27.0 mmol/L 22-32 Anion Gap 6.0 mmol/L 2-11 53 Glucose 94 mg/dL 70-100 BUN 12 mg/dL 6-24 Creatinine 0.7 mg/dL 0.50-1.40 One Over Creatinine 1.42 BUN/Creatinine Ratio 17.1 8-20 Calcium 8.8 mg/dL 8.1-9.9 Total Protein 6.3 GM/DL 6.2-8.1 Albumin 3.2 GM/DL 3.2-5.2 Globulin 3.1 GM/DL 2-4 Albumin/Globulin Ratio 1.0 1-3 Bilirubin Total 0.7 mg/dL 0.4-1.5 54 Alkaline Phosphatase 59 U/L 30-110 Alt (SGPT) 15 U/L 14-54 Ast (Sgot) 17 U/L 12-42 eGFR Non- 82.7 > 60 eGFR 106.4 > 60 55 Laboratory test finding 01/27/2012 CPK (Creatine Kinase) 66 U/L 0-170 CKMB 01/27/2012 CKMB In NG/ML 0.7 NG/ML 0.3-4.0 % CKMB 1 %MB 0-9 56 Laboratory test finding 01/27/2012 Myoglobin 14.20 NG/ML Low 14.3-65.8 Troponin-I 0 NG/ML 0-0.06 57 Laboratory test finding 01/09/2012 CA 125 (Ovarian Cancer Ag) 10.3 U/mL 2.0-35.0 58 Lipid Profile 01/06/2012 Triglyceride 81 mg/dL 40-200 (Trig/Chol/HDL) Cholesterol 212 mg/dL High Less Than 200 59 High Density Lipoprotein 72 mg/dL High 40-60 60 Cholesterol/HDL Ratio 2.94 AVERAGE 1-4.44 Low Density Lipoprotein 124 mg/dL High Less Than 100 61 Comp Metabolic Panel 12/19/2011 Sodium 136 mmol/L 135-145 Potassium 4.2 mmol/L 3.5-5.0 Chloride 105 mmol/L 101-111 Co2 (Carbon Dioxide) 27.0 mmol/L 22-32 Anion Gap 4.0 mmol/L 2-11 62 Glucose 93 mg/dL 70-100 BUN 15 mg/dL 6-24 Creatinine 0.8 mg/dL 0.50-1.40 One Over Creatinine 1.25 BUN/Creatinine Ratio 18.8 8-20 Calcium 9.1 mg/dL 8.1-9.9 Total Protein 6.7 GM/DL 6.2-8.1 Albumin 3.7 GM/DL 3.2-5.2 Globulin 3.0 GM/DL 2-4 Albumin/Globulin Ratio 1.2 1-3 Bilirubin Total 0.7 mg/dL 0.4-1.5 63 Alkaline Phosphatase 63 U/L 30-110 Alt (SGPT) 20 U/L 14-54 Ast (Sgot) 21 U/L 12-42 eGFR Non- 70.9 > 60 eGFR 91.2 > 60 64 Retic Count 11/29/2011 Red Cell Count 3.97 CUMM Low 4.2-5.4 Hemoglobin 12.2 g/dL 12.0-16.0 Hematocrit 35 % 35-47 Reticulocyte Count 1.93 % High 0.5-1.5 Corrected Retic 1.5 % 0.5-1.5 Retic Index 1.0 Mean Retic Volume 97.6 Immature Retic Fraction 0.28 RBC Retic Count 3.97 CUMM Low 4.6-6.2 Hematocrit For Retic Coun 35 % 35-47 Laboratory test finding 11/29/2011 Ferritin 39 NG/ML 11.0-307 Iron & Iron Binding Capacity 11/29/2011 Iron Total 62 g/dL 28-170 Unsaturated Iron Binding 319 g/dL Total Iron Binding Capacity 381 g/dL 250-450 % Iron Saturation 16 % 15-55 Laboratory test finding 11/29/2011 Folic Acid > 25.6 NG/ML See Below 65 Vitamin B12 672 pg/mL 180-914 Hemoglobin A1c 5.8 % Less Than 6.0 66 Comp Metabolic Panel 11/23/2011 Sodium 140 mmol/L 135-145 Potassium 4.6 mmol/L 3.5-5.0 Chloride 108 mmol/L 101-111 Co2 (Carbon Dioxide) 26.0 mmol/L 22-32 Anion Gap 6.0 mmol/L 2-11 67 Glucose 153 mg/dL High 70-100 BUN 16 mg/dL 6-24 Creatinine 0.9 mg/dL 0.50-1.40 One Over Creatinine 1.11 BUN/Creatinine Ratio 17.8 8-20 Calcium 7.6 mg/dL Low 8.1-9.9 Total Protein 4.9 GM/DL Low 6.2-8.1 Albumin 2.7 GM/DL Low 3.2-5.2 Globulin 2.2 GM/DL 2-4 Albumin/Globulin Ratio 1.2 1-3 Bilirubin Total 0.4 mg/dL 0.4-1.5 68 Alkaline Phosphatase 47 U/L 30-110 Alt (SGPT) 16 U/L 14-54 Ast (Sgot) 21 U/L 12-42 eGFR Non- 61.9 > 60 eGFR 79.6 > 60 69 Laboratory test finding 11/22/2011 Stone Analysis (SEE NOTE) 70 Blood Culture 11/22/2011 M 71 <SEE NOTE> CBC Auto Diff 11/22/2011 White Blood Count 8.5 CUMM 4.8-10.8 Red Cell Count 3.88 CUMM Low 4.2-5.4 Hemoglobin 11.9 g/dL Low 12.0-16.0 Hematocrit 34 % Low 35-47 Mean Corpuscular Volume 88 um3 79-97 Mean Corpuscular Hemoglob 31 pg 27-31 Mean Corpuscular HGB Cone 35 g/dL 32-36 Redcell Distribution WDTH 14 % 10.5-15 Platelet Count 298 CUMM 150-450 Mean Platelet Volume 7.9 um3 7.4-10.4 Gran % 77.0 % 38-83 Lymph % 13.6 % Low 25-47 Mononuclear % 8.1 % 1-9 Eosinophil % 0.9 % 0-6 Basophil % 0.4 % 0-2 Abs Lymphs 1.2 1.0-4.8 Abs Mononuclear 0.7 0-0.8 Absolute Neutrophil Count 6.5 1.5-7.7 Abs Eosinophils 0.1 0-0.6 Abs Basophils 0 0-0.2 72 Urinalysis W/Microscopic 11/22/2011 Ua Color ORANGE Yellow Appearance-Urine CLEAR Clear Specific [place]-Ur 1.017 1.010-1.030 73 Nitrite (SEE NOTE) Negative 74 [id number] (SEE NOTE) Negative 75 Protein-Urine (SEE NOTE) Negative 76 PH-Urine (SEE NOTE) 5-9 77 Blood-Urine (SEE NOTE) Negative 78 Ketones-Urine (SEE NOTE) Negative 79 Bilirubin-Ur (SEE NOTE) Negative 80 Glucose-Urine (SEE NOTE) Negative 81 WBC-Urine 10-15 0-5 RBC-Urine NONE SEEN 0-2 Mucus Urine SMALL None Epith Cells-Ur FEW None Bacteria-Urine TRACE None Laboratory test 11/22/2011 D Dimer Quantitative 589 NG/ML High Less Than 230 82 finding Troponin-I 0 NG/ML 0-0.06 83 Comp Metabolic Panel 11/22/2011 Sodium 134 mmol/L Low 135-145 Potassium 3.6 mmol/L 3.5-5.0 Chloride 101 mmol/L 101-111 Co2 (Carbon Dioxide) 25.0 mmol/L 22-32 Anion Gap 8.0 mmol/L 2-11 84 Glucose 136 mg/dL High 70-100 BUN 20 mg/dL 6-24 Creatinine 0.8 mg/dL 0.50-1.40 One Over Creatinine 1.25 BUN/Creatinine Ratio 25.0 High 8-20 Calcium 8.4 mg/dL 8.1-9.9 Total Protein 6.0 GM/DL Low 6.2-8.1 Albumin 3.5 GM/DL 3.2-5.2 Globulin 2.5 GM/DL 2-4 Albumin/Globulin Ratio 1.4 1-3 Bilirubin Total 0.8 mg/dL 0.4-1.5 85 Alkaline Phosphatase 51 U/L 30-110 Alt (SGPT) 19 U/L 14-54 Ast (Sgot) 22 U/L 12-42 eGFR Non- 70.9 > 60 eGFR 91.2 > 60 86 Comp Metabolic Panel 11/09/2011 Sodium 138 mmol/L 135-145 Potassium 3.8 mmol/L 3.5-5.0 Chloride 102 mmol/L 101-111 Co2 (Carbon Dioxide) 27.0 mmol/L 22-32 Anion Gap 9.0 mmol/L 2-11 87 Glucose 87 mg/dL 70-100 BUN 9 mg/dL 6-24 Creatinine 0.7 mg/dL 0.50-1.40 One Over Creatinine 1.42 BUN/Creatinine Ratio 12.9 8-20 Calcium 8.8 mg/dL 8.1-9.9 Total Protein 6.7 GM/DL 6.2-8.1 Albumin 3.6 GM/DL 3.2-5.2 Globulin 3.1 GM/DL 2-4 Albumin/Globulin Ratio 1.2 1-3 Bilirubin Total 0.6 mg/dL 0.4-1.5 88 Alkaline Phosphatase 58 U/L 30-110 Alt (SGPT) 18 U/L 14-54 Ast (Sgot) 21 U/L 12-42 eGFR Non- 82.7 > 60 eGFR 106.4 > 60 89 Laboratory test 11/09/2011 E.Coli 0157:H7 <SEE 90 finding Culture NOTE> Surgical Pathology 11/02/2011 Surgical Pathology <SEE 91 NOTE> Lipid Profile 10/08/2011 Triglyceride 82 mg/dL 40-200 (Trig/Chol/HDL) Cholesterol 232 mg/dL High Less Than 200 92 High Density Lipoprotein 66 mg/dL High 40-60 93 Cholesterol/HDL Ratio 3.52 AVERAGE 1-4.44 Low Density Lipoprotein 150 mg/dL High Less Than 100 94 Comp Metabolic Panel 10/08/2011 Sodium 140 mmol/L 135-145 Potassium 4.2 mmol/L 3.5-5.0 Chloride 106 mmol/L 101-111 Co2 (Carbon Dioxide) 26.0 mmol/L 22-32 Anion Gap 8.0 mmol/L 2-11 95 Glucose 95 mg/dL 70-100 BUN 15 mg/dL 6-24 Creatinine 0.8 mg/dL 0.50-1.40 One Over Creatinine 1.25 BUN/Creatinine Ratio 18.8 8-20 Calcium 9.3 mg/dL 8.1-9.9 Total Protein 6.5 GM/DL 6.2-8.1 Albumin 3.6 GM/DL 3.2-5.2 Globulin 2.9 GM/DL 2-4 Albumin/Globulin Ratio 1.2 1-3 Bilirubin Total 0.8 mg/dL 0.4-1.5 96 Alkaline Phosphatase 59 U/L 30-110 Alt (SGPT) 21 U/L 14-54 Ast (Sgot) 23 U/L 12-42 eGFR Non- 70.9 > 60 eGFR 91.2 > 60 97 Urinalysis W/Microscopic 10/06/2011 Ua Color YELLOW Yellow Appearance-Urine CLEAR Clear Specific [place]-Ur 1.012 1.010-1.030 Esterase-Urine TRACE Negative Nitrite NEGATIVE Negative [id number]-[id number]-VND NEGATIVE Negative Protein-Urine NEGATIVE Negative PH-Urine 7.0 5-9 Blood-Urine NEGATIVE Negative Ketones-Urine NEGATIVE Negative Bilirubin-Ur NEGATIVE Negative Glucose-Urine NEGATIVE Negative WBC-Urine 4-12 0-5 RBC-Urine RARE 0-2 Epith Cells-Ur MODERATE None Bacteria-Urine 1+ None 1 Because ethnic data is not always readily available, this report includes an eGFR for both -Americans and non- Americans. The National Kidney Disease Education Program (NKDEP) does not endorse the use of the MDRD equation for patients that are not between the ages of 18 and 70, are , have extremes of body size, muscle mass, or nutritional status, or are non- or non-. According to the National Kidney Foundation, irrespective of diagnosis, the stage of the disease is based on the level of kidney function: Stage Description GFR(mL/min/1.73 m(2)) 1 Kidney damage with normal or decreased GFR 90 2 Kidney damage with mild decrease in GFR 60-89 3 Moderate decrease in GFR 30-59 4 Severe decrease in GFR 15-29 5 Kidney failure <15 (or dialysis) 2 Desirable <150 Borderline high 150-199 High 200-499 Very High >500 3 Desirable <200 Borderline high 200-239 High >239 4 Low <40 Desirable: 40-60 High: >60 5 Desirable: <100 mg/dL Near Optimal: 100-129 mg/dL Borderline High: 130-159 mg/dL High: 160-189 mg/dL Very High: >189 mg/dL 6 [id number] 7 SEE RESULT BELOW Name: PEARL VERNON : [address]: Naresh Valdovinos MD Acct: [id number] Unit: [id number] AGE: 76 Location: [facility] Re10/10/16 SEX: F Status: DEP REF SPEC: JASON: 10/10/[address] [facility] [address]: Naresh Valdovinos MD REQ: [id number] RECD: 10/10/16 STATUS: ALONDRA WRIGHT DR: Sonali Foster MD _ ORDERED: LEVEL IV COMMENTS: [id number] FINAL DIAGNOSIS Colon, right, biopsy: -- Lymphocytic colitis. CLINICAL HISTORY Diarrhea POST-OPERATIVE DIAGNOSIS Colonoscopy into terminal ileum, prep good - normal, no polyp. Biopsies obtained from right colon to rule out microscopic colitis. Conclusions/Plan: Normal colonoscopy GROSS DESCRIPTION The specimen is received in formalin labeled, Biopsies Right Colon, and consists of a 0.6 x 0.6 x 0.1 cm aggregate of rankin-pink irregular soft tissue fragments, which is submitted entirely in one cassette. Signed (signature on file) Jelena Jett MD 02/20 1048 END OF REPORT * ML=Testing performed at Main Lab DEPARTMENT OF PATHOLOGY, [address] [place] [address] Wilian Graves M.D. Director [facility] # [id number] 8 SEE RESULT BELOW Name: PEARL VERNON : [address]: Sonali Foster MD Acct: [id number] Unit: [id number] AGE: 76 Location: [facility] Re08/29/16 SEX: F Status: REG REF SPEC: [id number] JASON: 08/29/16-[address] [facility] [address]: Sonali Foster MD REQ: [id number] RECD: 08/29/16 STATUS: COMP _ SOURCE: [facility]: ORDERED: Genoveva cisse PCR Procedure Result Reported Site Stool Specimen Description Final 08/31/16- 0815 ML Stool Color Dark Brown Stool Form Nonformed Stool Consistency Liquid C. difficile PCR Final 08/30/16- 1222 ML Organism 1 027 Presumptive NEGATIVE Organism 2 Toxigenic C.diff NEGATIVE * ML - MAIN LAB ([facility]) . END OF REPORT * ML=Testing performed at Main Lab DEPARTMENT OF PATHOLOGY, [address] [place] [address] Wilian Graves M.D. Director [facility] # [id number] 9 SEE RESULT BELOW Name: PEARL VERNON : [address]: Sonali Foster MD Acct: [id number] Unit: [id number] AGE: 76 Location: [facility] Re08/26/16 SEX: F Status: REG REF SPEC: [id number] JASON: 08/26/[address] [facility] [address]: Sonali Foster MD REQ: [id number] RECD: 08/26/16 STATUS: RES _ SOURCE: STOOL SPDESC: ORDERED: Stool Culture, O P (Full) Procedure Result Reported Site Stool Culture PENDING Shiga Toxin 1 2 PENDING O P: Giardia/Cryptospor Screen Final 08/26/16- 1317 ML Organism 1 Neg Cryptosporidium/Giardia Giardia and cryptosporidium antigen testing performed by enzyme immunoassay. The use of colonic washes, aspirates or other diluted sample types has not been established and could affect the performance of the assay. Stool samples contaminated with an oily or particulate base (eg. Barium, mineral oil etc.) could interfere with the test and are not recommended. Ova Parasite Concen Full Final 08/26/16- 1256 ML Test not performed * ML - MAIN LAB ([facility]) . END OF REPORT * ML=Testing performed at Main Lab DEPARTMENT OF PATHOLOGY, [address] [place] [address] Wilian Graves M.D. Director [facility] # [id number] 10 SEE RESULT BELOW Name: PEARL VERNON : [address]: Sonali Foster MD Acct: [id number] Unit: [id number] AGE: 76 Location: [facility] Re08/26/16 SEX: F Status: REG REF SPEC: [id number] JASON: 08/26/[address] [facility] [address]: Sonali Foster MD REQ: [id number] RECD: 08/26/16 STATUS: COMP _ SOURCE: STOOL SPDESC: ORDERED: Stool Culture, O P (Full) COMMENTS: Verbal to MARGARET SILVESTRE by [id number] at 1455 on 08/26/16. Results read back accurately. Procedure Result Reported Site Stool Culture Final 08/28/16- 1150 ML Result No enteric pathogens isolated Testing for Salmonella, Shigella, Aeromonas, Plesiomonas, Yersinia and Campylobacter are included in a Stool Culture. Vibrio spp not routinely tested for in a stool culture. If testing is desired, please request specifically when placing test order. Sensitivities not routinely performed on stool isolates, as antibiotics may prolong the carriage rate of bacteria. Please contact the microbiology lab if sensitivities are required. Shiga Toxin 1 2 Final 08/29/16- 1133 ML Organism 1 Negative Shiga Toxin 1 2 Immunochromatographic Assay O P: Giardia/Cryptospor Screen Final 08/26/16- 1317 ML Organism 1 Neg Cryptosporidium/Giardia CONTINUED ON NEXT PAGE * ML=Testing performed at Main Lab DEPARTMENT OF PATHOLOGY, [address] [place] [address] Wilian Graves M.D. Director [facility] # [id number] Patient: PEARL VERNON [id number] (Continued) Specimen: [id number] Collected: 08/26/16 Received: 08/26/16 (Continued) Procedure Result Reported Site O P: Giardia/Cryptospor Screen Final (continued) 08/26/16- 1317 Giardia and cryptosporidium antigen testing performed by enzyme immunoassay. The use of colonic washes, aspirates or other diluted sample types has not been established and could affect the performance of the assay. Stool samples contaminated with an oily or particulate base (eg. Barium, mineral oil etc.) could interfere with the test and are not recommended. Ova Parasite Concen Full Final 08/26/16- 1256 ML Test not performed * ML - MAIN LAB ([facility]) . END OF REPORT * ML=Testing performed at Main Lab DEPARTMENT OF PATHOLOGY, [address] [place] [address] Wilian Graves M.D. Director [facility] # [id number] 11 SOURCE: STOOL PARASITIC EXAMINATION FINAL No parasites seen. Cryptosporidium, Cyclospora, and microsporidia are not readily detected by this method. Single negative specimen does not rule out parasitic infection. Test Performed by: [place] [address] [employer]ator: Hieu Taveras II, M.D., Ph.D. 12 *Ascorbic acid is present which may interfere with detection of blood. 13 SEE RESULT BELOW Name: PEARL VERNON : [address]: Juan Luis Turner NP Acct: [id number] Unit: [id number] AGE: 75 Location: LAB Re04/14/16 SEX: F Status: REG REF SPEC: [id number] JASON: 04/14/16-[address]: Juan Luis Turner NP REQ: [id number] RECD: 04/14/16-1206 STATUS: COMP _ SOURCE: URINE SPDESC: ORDERED: Urine Culture Procedure Result Reported Site Urine Culture Final 04/15/16- 1403 ML No growth of clinically significant organisms * ML - MAIN LAB ([facility]) . END OF REPORT * ML=Testing performed at Main Lab DEPARTMENT OF PATHOLOGY, [address] [place] [address] Wilian Graves M.D. Director [facility] # [id number] 14 SEE RESULT BELOW Name: PEARL VERNON : [address]: Juan Luis Turner NP Acct: [id number] Unit: [id number] AGE: 75 Location: [facility] Re03/15/16 SEX: F Status: REG REF SPEC: [id number] JASON: 03/15/16-[address]: Juan Luis Turner NP REQ: [id number] RECD: 03/15/16-160 STATUS: COMP _ SOURCE: URINE SPDESC: ORDERED: Urine Culture COMMENTS: [id number] Procedure Result Reported Site Urine Culture Final 03/21/16- 1133 ML Organism 1 PROTEUS MIRABILIS [place] Count 10-25,000 (Moderate) CFU/ML * This is a corrected result. * Nitrofuantoin was added to report: this was not orginally reported due to a problem with software upgrade. 1. PROTEUS MIRABILIS M.I.C. RX --------- ------ Ampicillin <=2 S Cefazolin <=4 S Cefepime <=1 S Ceftriaxone <=1 S Ciprofloxacin <=0.25 S Gentamicin <=1 S Levofloxacin <=0.12 S Meropenem 0.5 S Nitrofurantoin 128 R Tetracycline >=16 R Pipercillin/Tazobactam <=4 S Trimethoprim/Sulfamethoxazole <=20 S Amoxicillin/Clavulanic Acid <=2 S Aztreonam <=1 S CONTINUED ON NEXT PAGE * ML=Testing performed at Main Lab DEPARTMENT OF PATHOLOGY, [address] [place] [address] Wilian Graves M.D. Director [facility] # [id number] Patient: PEARL VERNON [id number] (Continued) Specimen: [id number] Collected: 03/15/16-1203 Received: 03/15/16-1603 (Continued) Procedure Result Reported Site Urine Culture Final (continued) Contact the Microbiology Department for any additional antibiotic reporting. * ML - MAIN LAB (PSC1) . END OF REPORT * ML=Testing performed at Main Lab DEPARTMENT OF PATHOLOGY, [address] [place] [address] Wilian Graves M.D. Director [facility] # [id number] 15 Desirable <150 Borderline high 150-199 High 200-499 Very High >500 16 Desirable <200 Borderline high 200-239 High >239 17 Low <40 Desirable: 40-60 High: >60 18 Desirable: <100 mg/dL Near Optimal: 100-129 mg/dL Borderline High: 130-159 mg/dL High: 160-189 mg/dL Very High: >189 mg/dL 19 FASTING 10 HOUR 20 SEE RESULT BELOW Name: PEARL VERNON : [address]: Nils Salomon MD Acct: [id number] Unit: [id number] AGE: 75 Location: [facility] Re11/06/15 SEX: F Status: REG REF SPEC: [id number] JASON: 11/06/[address] [facility] [address]: Nils Salomon MD REQ: [id number] RECD: 11/06/15 STATUS: ALONDRA WRIGHT DR: Lizbet Orr MD _ ORDERED: LEVEL IV FINAL DIAGNOSIS Skin, right medial infraorbital cheek, excision: -- Scar and residual basal cell carcinoma, superficial and nodular type, focal micronodular pattern. -- Deep, tip, and lateral margins are clear. COMMENT: The previous lesion at this site has been completely excised. CLINICAL HISTORY See [facility] [id number]. PRE-OPERATIVE DIAGNOSIS Basal cell carcinoma, suture peterson 12 o'clock superior apex margin. 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 There is a suture attached to one long axis designating the 12:00 superior apex margin. The specimen is inked as follows: 9:00 half black, 3:00 half blue and 12:00 tip green; serially sectioned from 12:00 to 6:00 and entirely submitted in cassettes A through C, to include tips in cassette A. Signed (signature on file) Jelena Jett MD 11/20 1305 END OF REPORT * ML=Testing performed at Main Lab DEPARTMENT OF PATHOLOGY, [address] [place] [address] Wilian Graves M.D. Director [facility] # [id number] 21 Because ethnic data is not always readily available, this report includes an eGFR for both -Americans and non- Americans. The National Kidney Disease Education Program (NKDEP) does not endorse the use of the MDRD equation for patients that are not between the ages of 18 and 70, are , have extremes of body size, muscle mass, or nutritional status, or are non- or non-. According to the National Kidney Foundation, irrespective of diagnosis, the stage of the disease is based on the level of kidney function: Stage Description GFR(mL/min/1.73 m(2)) 1 Kidney damage with normal or decreased GFR 90 2 Kidney damage with mild decrease in GFR 60-89 3 Moderate decrease in GFR 30-59 4 Severe decrease in GFR 15-29 5 Kidney failure <15 (or dialysis) 22 [employer]: [id number] CHETAN ZELAYA 23 SEE RESULT BELOW Name: PEARL VERNON : [address]: Lizbet Christian MD Acct: [id number] Unit: [id number] AGE: 75 Location: [facility] Re09/04/15 SEX: F Status: REG REF SPEC: [id number] JASON: 09/04/15-[address]: Lizbet Christian MD REQ: [id number] RECD: 09/04/15-1640 STATUS: COMP _ SOURCE: DIANELYSTopher [facility]: ORDERED: Flu A B Request Procedure Result Reported Site Rapid Influenza A B Request Final 09/04/15- 1745 ML Specimen received for Influenza A/B Molecular testing * ML - MAIN LAB ([facility]) . END OF REPORT * ML=Testing performed at Main Lab DEPARTMENT OF PATHOLOGY, [address] [facility], [place], [place] [address] Wilian Graves M.D. Director [facility] # [id number] 24 SEE RESULT BELOW Name: PEARL VERNON : [address]: Lizbet Christian MD Acct: [id number] Unit: [id number] AGE: 75 Location: [facility] Re09/04/15 SEX: F Status: REG REF SPEC: [id number] JASON: 09/04/15-[address] [facility] [address]: Lizbet Christian MD REQ: [id number] RECD: 09/04/15 STATUS: COMP _ SOURCE: URINE SPDESC: ORDERED: Urine Culture Procedure Result Reported Site Urine Culture Final 09/05/15- 1359 ML No Growth (<1,000 CFU/mL) * ML - MAIN LAB ([facility]) . END OF REPORT * ML=Testing performed at Main Lab DEPARTMENT OF PATHOLOGY, [address] [place] [address] Wilian Graves M.D. Director [facility] # [id number] 25 *Ascorbic acid is present which may interfere with detection of blood. 26 PT IS FASTING 27 Desirable <150 Borderline high 150-199 High 200-499 Very High >500 28 Desirable <200 Borderline high 200-239 High >239 29 Low <40 Desirable: 40-60 High: >60 30 Desirable: <100 mg/dL Near Optimal: 100-129 mg/dL Borderline High: 130-159 mg/dL High: 160-189 mg/dL Very High: >189 mg/dL 31 Because ethnic data is not always readily available, this report includes an eGFR for both -Americans and non- Americans. The National Kidney Disease Education Program (NKDEP) does not endorse the use of the MDRD equation for patients that are not between the ages of 18 and 70, are , have extremes of body size, muscle mass, or nutritional status, or are non- or non-. According to the National Kidney Foundation, irrespective of diagnosis, the stage of the disease is based on the level of kidney function: Stage Description GFR(mL/min/1.73 m(2)) 1 Kidney damage with normal or decreased GFR 90 2 Kidney damage with mild decrease in GFR 60-89 3 Moderate decrease in GFR 30-59 4 Severe decrease in GFR 15-29 5 Kidney failure <15 (or dialysis) 32 -- REFERENCE VALUE -- 25-HYDROXY D TOTAL (D2+D3) Optimum levels in the healthy population are 20-50, patients with bone disease may benefit from higher levels within this range. Test Performed by: [place] [address] [employer]ator: Manuel Vaca III, M.D. 33 -- REFERENCE VALUE -- 25-HYDROXY D TOTAL (D2+D3) Optimum levels in the healthy population are 20-50, patients with bone disease may benefit from higher levels within this range. Test Performed by: [place] [address] [employer]ator: Manuel Vaca III, M.D. 34 HDL Interpretation: Undesirable: High Risk: Less than 40 mg/dL Desirable: Low Risk: Greater than 60 mg/dL 35 LDL Interpretation: Low Risk Optimal Level: LDL Less than 100 mg/dL Near or Above Optimal: LDL 100-129 mg/dL Borderline High Risk: LDL 130-159 mg/dL High Risk: LDL 160-189 mg/dL Very High Risk: LDL Greater than 189 mg/dL 36 Because ethnic data is not always readily available, this report includes an eGFR for both -Americans and non- Americans. The National Kidney Disease Education Program (NKDEP) does not endorse the use of the MDRD equation for patients that are not between the ages of 18 and 70, are , have extremes of body size, muscle mass, or nutritional status, or are non- or non-. According to the National Kidney Foundation, irrespective of diagnosis, the stage of the disease is based on the level of kidney function: Stage Description GFR(mL/min/1.73 m(2)) 1 Kidney damage with normal or decreased GFR 90 2 Kidney damage with mild decrease in GFR 60-89 3 Moderate decrease in GFR 30-59 4 Severe decrease in GFR 15-29 5 Kidney failure <15 (or dialysis) 37 RUN DATE: 01/22/13 [facility] LAB LIVE PAGE 1 RUN TIME: [address] [place] [id number] Specimen Inquiry Name: PEARL VERNON Criss : [address]: Lizbet Christian MD Acct: [id number] Unit: [id number] AGE: 72 Location: [facility] Re01/18/13 SEX: F Status: REG REF SPEC: [id number] JASON: 01/18/13- SUBM DR: Lizbet Christian MD REQ: [id number] RECD: 01/21/13 STATUS: SOUT _ ORDERED: LEVEL IV FINAL DIAGNOSIS Skin, right side of forehead, excision: Verrucoid vulgaris. CLINICAL HISTORY Long time present, no change in size PRE-OPERATIVE DIAGNOSIS Mole GROSS DESCRIPTION The specimen is received in formalin labeled Pearl Vernon, Right Side Forehead, and consists of a rankin verrucoid skin fragment measuring 0.7 x 0.6 x 0.2 cm. The specimen is bisected and submitted entirely, one cassette. Signed (signature on file) Wilian Graves MD 1354 END OF REPORT * ML=Testing performed at Main Lab DEPARTMENT OF PATHOLOGY, [address] [place] [address] Wilian Graves M.D. Director [facility] Permit #[id number] 38 Because ethnic data is not always readily available, this report includes an eGFR for both -Americans and non- Americans. The National Kidney Disease Education Program (NKDEP) does not endorse the use of the MDRD equation for patients that are not between the ages of 18 and 70, are , have extremes of body size, muscle mass, or nutritional status, or are non- or non-. According to the National Kidney Foundation, irrespective of diagnosis, the stage of the disease is based on the level of kidney function: Stage Description GFR(mL/min/1.73 m(2)) 1 Kidney damage with normal or decreased GFR 90 2 Kidney damage with mild decrease in GFR 60-89 3 Moderate decrease in GFR 30-59 4 Severe decrease in GFR 15-29 5 Kidney failure <15 (or dialysis) 39 HDL Interpretation: Undesirable: High Risk: Less than 40 MG/DL Desirable: Low Risk: Greater than 60 MG/DL 40 LDL Interpretation: Low Risk Optimal Level: LDL Less than 100 MG/DL Near or Above Optimal: LDL 100-129 MG/DL Borderline High Risk: LDL 130-159 MG/DL High Risk: LDL 160-189 MG/DL Very High Risk: LDL Greater than 189 MG/DL 41 Because ethnic data is not always readily available, this report includes an eGFR for both -Americans and non- Americans. The National Kidney Disease Education Program (NKDEP) does not endorse the use of the MDRD equation for patients that are not between the ages of 18 and 70, are , have extremes of body size, muscle mass, or nutritional status, or are non- or non-. According to the National Kidney Foundation, irrespective of diagnosis, the stage of the disease is based on the level of kidney function: Stage Description GFR(mL/min/1.73 m(2)) 1 Kidney damage with normal or decreased GFR 90 2 Kidney damage with mild decrease in GFR 60-89 3 Moderate decrease in GFR 30-59 4 Severe decrease in GFR 15-29 5 Kidney failure <15 (or dialysis) 42 Therapeutic target for the treatment of diabetes Mellitus patients is <7% HBA1C, and in selective patients <6.0%.Please refer to [place] [employer] Association Diabetic care guidelines for further information. 43 No informative autoantibodies were detected in this evaluation. However, a negative result does not exclude neurological autoimmunity with or without associated neoplasia. R 44 -- REFERENCE VALUE -- Negative at <1:240 Titers lower than 1:240 may be detectable by recombinant CRMP-5 western blot analysis. CRMP-5 western blot analysis will be done by request on stored serum. This supplemental testing is recommended in cases of chorea, vision loss, cranial neuropathy and myelopathy. Extramural clients Contact [facility] Inquiry at to add-on CRMP-5-IgG Western Blot, Serum. Intramural Clients, please call the Neuroimmunology Lab at [phone]. R 45 Test Performed by: [place] [address] [employer] Du[employer]ator: Manuel Vaca III, M.D. R 46 CHOLESTEROL INTERPRETATION: Desirable: Less than 200 MG/DL Borderline-High Risk: 200-239 MG/DL High-Risk: 240 MG/DL and over 47 HDL INTERPRETATION: Undesirable: High Risk: Less than 40 MG/DL Desirable: Low Risk: Greater than 60 MG/DL 48 LDL INTERPRETATION: Low Risk Optimal Level: LDL Less than 100 MG/DL Near or Above Optimal: LDL 100-129 MG/DL Borderline High Risk: LDL 130-159 MG/DL High Risk: LDL 160-189 MG/DL Very High Risk: LDL Greater than 189 MG/DL 49 Anion gap measurement may be of limited value in the presence of any alkalosis, especially in a combined acid base disorder. . 50 A metabolite of Naproxen, O-desmethylnaproxen, has been shown to interfere with the Jendrassik-[place] method for measuring total bilirubin. Samples from patients who have taken Naproxen have shown spurious elevation in total bilirubin levels. 51 Because ethnic data is not always readily available, this report includes an eGFR for both -Americans and non- Americans. The National Kidney Disease Education Program (NKDEP) does not endorse the use of the MDRD equation for patients that are not between the ages of 18 and 70, are , have extremes of body size, muscle mass, or nutritional status, or are non- or non-. According to the National Kidney Foundation, irrespective of diagnosis, the stage of the disease is based on the level of kidney function: Stage Description GFR(mL/min/1.73 m(2)) 1 Kidney damage with normal or decreased GFR 90 2 Kidney damage with mild decrease in GFR 60-89 3 Moderate decrease in GFR 30-59 4 Severe decrease in GFR 15-29 5 Kidney failure <15 (or dialysis) 52 Monocytosis % 53 Anion gap measurement may be of limited value in the presence of any alkalosis, especially in a combined acid base disorder. . 54 A metabolite of Naproxen, O-desmethylnaproxen, has been shown to interfere with the Jendrassik-[place] method for measuring total bilirubin. Samples from patients who have taken Naproxen have shown spurious elevation in total bilirubin levels. 55 Because ethnic data is not always readily available, this report includes an eGFR for both -Americans and non- Americans. The National Kidney Disease Education Program (NKDEP) does not endorse the use of the MDRD equation for patients that are not between the ages of 18 and 70, are , have extremes of body size, muscle mass, or nutritional status, or are non- or non-. According to the National Kidney Foundation, irrespective of diagnosis, the stage of the disease is based on the level of kidney function: Stage Description GFR(mL/min/1.73 m(2)) 1 Kidney damage with normal or decreased GFR 90 2 Kidney damage with mild decrease in GFR 60-89 3 Moderate decrease in GFR 30-59 4 Severe decrease in GFR 15-29 5 Kidney failure <15 (or dialysis) 56 INTERPRETATION %CK-MB < 5% NOT SUPPORTIVE OF DIAGNOSIS OF CO 5 - <10% INDETERMINATE; SUGGEST SERIAL STUDIES IF CLINICALLY INDICATED 10% OR > CONSISTENT WITH DIAGNOSIS OF CO . 57 New Reference Range and Interpretation effective 05/10/2002 TnI (ng/ml) INTERPRETATION Less Than 0.06 ng/mL NOT SUPPORTIVE OF DIAGNOSIS OF CO 0.06 - 0.50 ng/ml INDETERMINATE: SUGGEST SERIAL STUDIES IF CLINICALLY INDICATED. Greater than 0.5 ng/mL CONSISTENT WITH DIAGNOSIS OF CO . 58 Assay by chemiluminescence microparticle immunoassay on the [employer] Access[employer]. The CA 125 assay is not recommended as a cancer screening test, but rather as an aid in monitoring response to therapy for patients with epithelial ovarian cancer. Serial testing for patients CA 125 assay values should be used in conjunction with other methods used for screening ovarian cancer. Values obtained with different methods or kits cannot be used interchangeably for patient monitoring. Results cannot be interpreted as absolute evidence of the presence or absence of malignancy. 59 CHOLESTEROL INTERPRETATION: Desirable: Less than 200 MG/DL Borderline-High Risk: 200-239 MG/DL High-Risk: 240 MG/DL and over 60 HDL INTERPRETATION: Undesirable: High Risk: Less than 40 MG/DL Desirable: Low Risk: Greater than 60 MG/DL 61 LDL INTERPRETATION: Low Risk Optimal Level: LDL Less than 100 MG/DL Near or Above Optimal: LDL 100-129 MG/DL Borderline High Risk: LDL 130-159 MG/DL High Risk: LDL 160-189 MG/DL Very High Risk: LDL Greater than 189 MG/DL 62 Anion gap measurement may be of limited value in the presence of any alkalosis, especially in a combined acid base disorder. . 63 A metabolite of Naproxen, O-desmethylnaproxen, has been shown to interfere with the Jendrassik-Sandrita method for measuring total bilirubin. Samples from patients who have taken Naproxen have shown spurious elevation in total bilirubin levels. 64 Because ethnic data is not always readily available, this report includes an eGFR for both -Americans and non- Americans. The National Kidney Disease Education Program (NKDEP) does not endorse the use of the MDRD equation for patients that are not between the ages of 18 and 70, are , have extremes of body size, muscle mass, or nutritional status, or are non- or non-. According to the National Kidney Foundation, irrespective of diagnosis, the stage of the disease is based on the level of kidney function: Stage Description GFR(mL/min/1.73 m(2)) 1 Kidney damage with normal or decreased GFR 90 2 Kidney damage with mild decrease in GFR 60-89 3 Moderate decrease in GFR 30-59 4 Severe decrease in GFR 15-29 5 Kidney failure <15 (or dialysis) 65 Please note: New reference range, effective 07/28/11 NORMAL REFERENCE RANGE: GREATER THAN 4.1 NG/ML 66 THERAPEUTIC TARGET FOR THE TREATMENT OF DIABETES MELLITUS PATIENTS IS <7% HBA1C, AND IN SELECTIVE PATIENTS <6.0%. PLEASE REFER TO [place] [employer] DIABETIC CARE GUIDELINES FOR FURTHER INFORMATION. 67 Anion gap measurement may be of limited value in the presence of any alkalosis, especially in a combined acid base disorder. . 68 A metabolite of Naproxen, O-desmethylnaproxen, has been shown to interfere with the Jendrassik-Sandrita method for measuring total bilirubin. Samples from patients who have taken Naproxen have shown spurious elevation in total bilirubin levels. 69 Because ethnic data is not always readily available, this report includes an eGFR for both -Americans and non- Americans. The National Kidney Disease Education Program (NKDEP) does not endorse the use of the MDRD equation for patients that are not between the ages of 18 and 70, are , have extremes of body size, muscle mass, or nutritional status, or are non- or non-. According to the National Kidney Foundation, irrespective of diagnosis, the stage of the disease is based on the level of kidney function: Stage Description GFR(mL/min/1.73 m(2)) 1 Kidney damage with normal or decreased GFR 90 2 Kidney damage with mild decrease in GFR 60-89 3 Moderate decrease in GFR 30-59 4 Severe decrease in GFR 15-29 5 Kidney failure <15 (or dialysis) 70 TEST RESULT RETURNED FROM REFERENCE LABORATORY. HARDCOPY REPORT TO BE SENT TO PHYSICIAN(S) OFFICE. 71 RUN DATE: 11/27/11 [facility] NMI LIVE PAGE 1 RUN TIME: 708 Specimen Inquiry RUN USER: INTERFACE Name: PEARL VERNON Status: DIS IN Re11/23/11 Age/Sex: 71/F Unit#: [id number] Location: [facility].O[facility] : [birth year] SPEC #: [id number] JASON: 11/22/11 STATUS: COMP REQ #: [id number] RECD: 11/22/[address]: Ragini QIU, Jacklyn Morse SOURCE: BLOOD ENTR: 11/22/[address] [facility] [address]: Gino QIU,Lizbet Cervantes SPDESC: BLOOD,VENO ORDERED: BLOOD CULTURE ACT WKST: BC 11/23/11 #1 Procedure Result Verified Site > AEROBIC CULTURE BOTTLE Final -0709 ML NO GROWTH AFTER 5 DAYS > ANAEROBIC CULTURE BOTTLE Final -0709 ML NO GROWTH AFTER 5 DAYS - [facility] Permit #[id number] [address] [place] [address] DEPARTMENT OF PATHOLOGY, [address] [place] [address] [facility] Permit #[id number] Tan Garrison M.D. Animal Care Taker 72 Lymphopenia % 73 UNABLE TO CONFIRM RESULT DUE TO ATYPICAL COLOR REACTION. 11/22/11 0609: ESTERASE previously reported as: UNABLE TO CONFIRM RESULT DUE TO ATYPICAL COLOR REACTION. 74 UNABLE TO CONFIRM RESULT DUE TO ATYPICAL COLOR REACTION. 75 UNABLE TO CONFIRM RESULT DUE TO ATYPICAL COLOR REACTION. 76 UNABLE TO CONFIRM RESULT DUE TO ATYPICAL COLOR REACTION. 77 UNABLE TO CONFIRM RESULT DUE TO ATYPICAL COLOR REACTION. 78 UNABLE TO CONFIRM RESULT DUE TO ATYPICAL COLOR REACTION. 79 UNABLE TO CONFIRM RESULT DUE TO ATYPICAL COLOR REACTION. 80 UNABLE TO CONFIRM RESULT DUE TO ATYPICAL COLOR REACTION. 81 UNABLE TO CONFIRM RESULT DUE TO ATYPICAL COLOR REACTION. 82 VERBAL TO PHAN/ED BY MAC at 0654 on 11/22/11. Results read back accurately. Please note: The following may produce a false positive D Dimer test: - Rheumatoid factor greater than 1400 IU/ml - Plasma hemoglobin greater than 0.5 gm/dl - Bilirubin greater than 18 mg/dl - Triglycerides greater than 1327 mg/dl - FDP greater than 10 ug/ml . 83 New Reference Range and Interpretation effective 05/10/2002 TnI (ng/ml) INTERPRETATION Less Than 0.06 ng/mL NOT SUPPORTIVE OF DIAGNOSIS OF CO 0.06 - 0.50 ng/ml INDETERMINATE: SUGGEST SERIAL STUDIES IF CLINICALLY INDICATED. Greater than 0.5 ng/mL CONSISTENT WITH DIAGNOSIS OF CO . 84 Anion gap measurement may be of limited value in the presence of any alkalosis, especially in a combined acid base disorder. . 85 A metabolite of Naproxen, O-desmethylnaproxen, has been shown to interfere with the Jendrassik-Sandrita method for measuring total bilirubin. Samples from patients who have taken Naproxen have shown spurious elevation in total bilirubin levels. 86 Because ethnic data is not always readily available, this report includes an eGFR for both -Americans and non- Americans. The National Kidney Disease Education Program (NKDEP) does not endorse the use of the MDRD equation for patients that are not between the ages of 18 and 70, are , have extremes of body size, muscle mass, or nutritional status, or are non- or non-. According to the National Kidney Foundation, irrespective of diagnosis, the stage of the disease is based on the level of kidney function: Stage Description GFR(mL/min/1.73 m(2)) 1 Kidney damage with normal or decreased GFR 90 2 Kidney damage with mild decrease in GFR 60-89 3 Moderate decrease in GFR 30-59 4 Severe decrease in GFR 15-29 5 Kidney failure <15 (or dialysis) 87 Anion gap measurement may be of limited value in the presence of any alkalosis, especially in a combined acid base disorder. . 88 A metabolite of Naproxen, O-desmethylnaproxen, has been shown to interfere with the Jendrassik-[place] method for measuring total bilirubin. Samples from patients who have taken Naproxen have shown spurious elevation in total bilirubin levels. 89 Because ethnic data is not always readily available, this report includes an eGFR for both -Americans and non- Americans. The National Kidney Disease Education Program (NKDEP) does not endorse the use of the MDRD equation for patients that are not between the ages of 18 and 70, are , have extremes of body size, muscle mass, or nutritional status, or are non- or non-. According to the National Kidney Foundation, irrespective of diagnosis, the stage of the disease is based on the level of kidney function: Stage Description GFR(mL/min/1.73 m(2)) 1 Kidney damage with normal or decreased GFR 90 2 Kidney damage with mild decrease in GFR 60-89 3 Moderate decrease in GFR 30-59 4 Severe decrease in GFR 15-29 5 Kidney failure <15 (or dialysis) 90 RUN DATE: 11/12/11 [facility] NMI LIVE PAGE 1 RUN TIME: 1027 Specimen Inquiry RUN USER: INTERFACE Name: PEARL VERNON Status: REG REF Re11/09/11 Age/Sex: 71/F Unit#: [id number] Location: : 41 SPEC #: [id number] JASON: 11/09/11 STATUS: COMP REQ #: [id number] RECD: 11/09/[address]: Jayjay ORTIZ,Ana Lazo SOURCE: STOOL ENTR: 11/09/[address]: JACQUELINEC: ORDERED: E.COLI 0157:H7, STOOL CULTURE, O P: DREA/Genoveva YEE AMP DNA QUERIES: MEDENT REQUISITION # [id number] ACT WKST: B 11/12/11 #1 Procedure Result Verified Site > STOOL CULT SENSITIVITY Final -1027 ML NEGATIVE FOR THE ENTERIC PATHOGENS - SALMONELLA, SHIGELLA, AEROMONAS, PLESIOMONAS AND YERSINIA. VIBRIO AND E. COLI 0157 NOT ROUTINELY TESTED FOR IN A STOOL CULTURE. PLEASE SUBMIT SAMPLE WITH SPECIFIC REQUEST FOR DESIRED ORGANISM(S). > STOOL SPECIMEN DESCRIPTION Final -0737 ML STOOL COLOR BROWN STOOL FORM NONFORMED STOOL CONSISTENCY LIQUID > CAMPYLOBACTER CULTURE Final -1027 ML NO GROWTH OF CAMPYLOBACTER AFTER 48 HOURS > SHIGA TOXIN 1 AND 2 (EHEC) Final -1408 ML SHIGA TOXIN 1 NEGATIVE BY IMMUNOCHROMATOGRAPHIC ASSAY SHIGA TOXIN 2 NEGATIVE BY IMMUNOCHROMATOGRAPHIC ASSAY > E.COLI 0157:H7 CULTURE Final -1026 ML NO GROWTH OF E COLI 0157:H7 > O P: GIARDIA/CRYPTO SCREEN Final -1409 ML GIARDIA ANTIGEN NEGATIVE BY IMMUNOASSAY CRYPTOSPORIDIUM ANTIGEN NEGATIVE BY IMMUNOASSAY Giardia and cryptosporidium antigen testing performed by immunoassay. If patient is immunocompromised or has traveled to or is from a developing country, a full ova and parasite exam with microscopic (OPMIC) is recommended. All samples will be held one month in case full ova and parasite testing is requested. Contact the Microbiology Department at [phone]. TEST LIMITATIONS: DEPARTMENT OF PATHOLOGY, [address] [place] [address] [facility] Permit #[id number] Wilian Graves M.D. Director Dick Alexander M.D. Animal Care Taker RUN DATE: 11/12/11 [facility] NMI LIVE PAGE 2 RUN TIME: 1027 Specimen Inquiry RUN USER: INTERFACE Name: PEARL VERNON Status: REG REF Re11/09/11 Age/Sex: 71/F Unit#: [id number] Location: : 41 -- -- CONTINU ED Procedure Result Verified Site O P: GIARDIA/CRYPTO SCREEN Final (continued) 11/11/11- 1409 As with all diagnostic procedures, the results obtained should be used in conjunction with other clinical information available the physician. Negative results can occur in samples containing antigen below lower limits of detection of the assay. The use of colonic washes, aspirates or other diluted sample types has not been established and could affect the performance of the assay. Stool samples contaminated with an oily or particulate base (eg. Barium, mineral oil etc.) could interfere with the test and are not recommended. > C. DIFFICILE AMPLIFIED DNA Final -1502 ML C. DIFFICILE AMPLIF DNA NEGATIVE: NO TOXIGENIC C. DIFFICILE DETECTED TEST LIMITATIONS: Assay does not distinguish between viable and non-viable organisms. Test results are to be used in conjunction with information available from the patient clinical evaluation and other diagnostic procedures. Two distinct groups have been identified that can harbor C. difficile asymptomatically at very high rates. Colonization at rates up to 50% and higher have been reported in infants and rates up to 32% in cystic fibrosis patients. - [facility] Permit #[id number] [address] [place] [address] DEPARTMENT OF PATHOLOGY, [address] [place] [address] [facility] Permit #[id number] Wilian Graves M.D. Director Dick Alexander M.D. Animal Care Taker 91 ---- RUN DATE: 11/03/11 [facility] NMI LIVE PAGE 1 RUN TIME: 1446 Specimen Inquiry RUN USER: INTERFACE -- Name: PEARL VERNON Status: REG REF Re11/02/11 Age/Sex: 71/F Unit#: [id number] Location: [facility]. : 41 -- Specimen: [id number] SOUT Spec Date:11/02/11 Dr: Naresh omalley MD Spec Type: SURGICAL P Received:11/02/11 Copies to: Lizbet allison MD SPECIMEN RANDOM COLON BIOPSIES HISTORY POST-OP DIAGNOSIS: Colonoscopy into terminal ileum. Random biopsies. Norm al colonoscopy. CLINICAL INFORMATION: Rectal bleeding. GROSS DESCRIPTION The specimen is received in formalin labelled Richard Vernon, Random Colon Biopsy, and consists of three irregular rankin soft tissue fragments measuring 0.7 x 0.3 x 0.2 cm. in aggregate. Submitted entirely, one cassette. DIAGNOSIS Colon, random biopsies: A. Large intestinal mucosa with mild to moderate acute superficial colitis with focal cryptitis. B. Prominent lymphoid aggregate. C. No significant architectural disorder identified. D. No dysplasia identified. Signed Electronically by: WILIAN GRAVES MD 11/03/11 1442 -- -- DEPARTMENT OF PATHOLOGY, [address] [place] [address] [facility] Permit #[id number] Wilian Graves M.D. Director Dick Alexander M.D. Bottling Line Operator Dir bucky -- 92 CHOLESTEROL INTERPRETATION: Desirable: Less than 200 MG/DL Borderline-High Risk: 200-239 MG/DL High-Risk: 240 MG/DL and over 93 HDL INTERPRETATION: Undesirable: High Risk: Less than 40 MG/DL Desirable: Low Risk: Greater than 60 MG/DL 94 LDL INTERPRETATION: Low Risk Optimal Level: LDL Less than 100 MG/DL Near or Above Optimal: LDL 100-129 MG/DL Borderline High Risk: LDL 130-159 MG/DL High Risk: LDL 160-189 MG/DL Very High Risk: LDL Greater than 189 MG/DL 95 Anion gap measurement may be of limited value in the presence of any alkalosis, especially in a combined acid base disorder. . 96 A metabolite of Naproxen, O-desmethylnaproxen, has been shown to interfere with the Jendrassik-Sandrita method for measuring total bilirubin. Samples from patients who have taken Naproxen have shown spurious elevation in total bilirubin levels. 97 Because ethnic data is not always readily available, this report includes an eGFR for both -Americans and non- Americans. The National Kidney Disease Education Program (NKDEP) does not endorse the use of the MDRD equation for patients that are not between the ages of 18 and 70, are , have extremes of body size, muscle mass, or nutritional status, or are non- or non-. According to the National Kidney Foundation, irrespective of diagnosis, the stage of the disease is based on the level of kidney function: Stage Description GFR(mL/min/1.73 m(2)) 1 Kidney damage with normal or decreased GFR 90 2 Kidney damage with mild decrease in GFR 60-89 3 Moderate decrease in GFR 30-59 4 Severe decrease in GFR 15-29 5 Kidney failure <15 (or dialysis) Procedures Date CPT Code Description Status 01/09/2017 Mammogram Completed 12/23/2016 Bone Mineral Density Test Completed 10/20/2016 Colonoscopy Completed 01/08/2016 Mammogram Completed 01/06/2015 Mammogram Completed 01/06/2015 Bone Mineral Density Test Completed 12/16/2013 Mammogram Completed 01/18/2013 21413 Shave Of Lesion, Face,Ears,Eyelids,Nose,Lips 0.5CM Or Completed Less 12/11/2012 Bone Mineral Density Test Completed 10/09/2012 Mammogram Completed 03/30/2012 18796 EKG Tracing & Interpretation Completed 01/28/2012 61899 Stress Test Supervsn W/Out I/R Completed 01/28/2012 01859 Treadmill Interp/Report Only Completed 11/02/2011 Colonoscopy Completed 10/25/2011 Mammogram Completed 09/29/2011 Mammogram Completed 06/14/2011 02442 Inject Tendon Sheath Or Ligament Aponeurosis Eg Plantar Completed Fascia 06/14/2011 32575 Inject Tendon Sheath Or Ligament Aponeurosis Eg Plantar Completed Fascia Encounters Type Date Location Provider CPT E/M Dx Office Visit 07/18/2017 [facility] Yudi Woodruff, 48628 G30.9 3:15p Services [facility]ox Office Visit 07/06/2017 [facility] Sonali Foster M.D. 48108 J40 1:40p - [place] Office Visit 12/27/2016 [facility] Yudi Woodruff, 38113 G30.9 10:45a Services [facility] Ana Maddox Office Visit 12/05/2016 [facility] Blair Mendoza, 66078 J20.9 1:00p - [place] Maddox Office Visit 08/25/2016 [facility] Sonali Foster M.D. 98645 R19.7 1:00p - [place] Z85.828 Office Visit 06/28/2016 11:50a [facility] Sonali Foster M.D. 61741 L98.9 - [place] Z23 Office Visit 06/28/2016 10:45a [facility] Yudi Woodruff, 03512 F03.90 Services [facility] [employer] M.D. Office Visit 03/15/2016 11:40a [facility] [place] [address] R35.0 - [place] Office Visit 01/13/2016 11:50a [facility] Sonali Foster M.D. 17486 J20.9 - [place] Office Visit 12/24/2015 9:45a [facility] Yudi Woodruff, 61674 R41.3 Services [facility] [employer] M.D. Office Visit 10/15/2015 1:00p [facility] Lizbet Christian M.D. 74844 R42 - [place] Office Visit 09/08/2015 4:40p [facility] Lizbet Christian M.D. 04843 R50.9 - [place] Office Visit 09/04/2015 12:40p [facility] Lizbet Christian M.D. 28803 R50.9 - [place] N39.0 Office Visit 06/25/2015 9:15a [facility] Yudi Woodruff, 26062 R41.3 Services [facility] [employer] M.D. Office Visit 06/18/2015 10:00a [facility] Lizbet Christian M.D. 35087 E78.2 - [place] L82.1 R41.1 E55.9 Z23 Office Visit 12/18/2014 11:15a [facility] Yudi Woodruff, 25736 780.93 [facility] [employer] M.D. Office Visit 07/24/2014 10:20a [facility] Lizbet Christian M.D. 84570 840.9 - [place] 401.1 Office Visit 06/26/2014 10:30a [facility] Yudi Woodruff, 48845 780.93 [facility] [employer] M.D. Office Visit 02/13/2014 2:20p [facility] Lizbet Christian M.D. 67249 780.4 - [place] Office Visit 02/04/2014 11:20a [facility] Lizbet Christian M.D. 57530 780.79 - [place] 401.1 Office Visit 12/26/2013 10:45a [facility] Yudi Woodruff, 22480 780.93 [facility] [employer] M.D. Office Visit 12/12/2013 11:20a [facility] Lizbet Christian M.D. 03344 461.9 - [place] V76.19 268.9 Office Visit 08/22/2013 9:20a [facility] Lizbet Christian M.D. 13524 V72.81 - [place] 366.8 780.93 401.9 285.8 272.2 733.99 Office Visit 06/10/2013 10:45a [facility] Yudi Woodruff, 30395 780.93 Services [facility] [employer] M.D. Office Visit 05/21/2013 11:00a [facility] Lizbet Christian M.D. 83022 233.0 - [place] 905.7 455.0 780.79 V04.81 Office Visit 02/26/2013 2:10p [facility] Sonali Foster, 56909 923.10 - Aleksey Maddox V06.1 Office Visit 12/20/2012 9:40a [facility] Lizbet Christian M.D. 18785 331.0 - [place] 285.8 401.9 272.2 733.99 V04.89 Office Visit 12/07/2012 10:45a [facility] Yudi Woodruff, 74285 331.0 [facility] [employer] M.D. 294.10 Office Visit 07/19/2012 3:40p [facility] Lizbet Christian M.D. 36340 285.8 - [place] 233.0 Office Visit 06/20/2012 1:45p [facility] Yudi Woodruff, 01042 331.0 Services Of [employer] M.D. 294.10 Office Visit 03/30/2012 1:40p [facility] Lizbet Christian M.D. 43420 V72.81 - [place] 401.9 272.2 290.0 285.8 233.0 620.2 Office Visit 01/31/2012 11:20a [facility] Lizbet Christian M.D. 09493 786.50 - [place] 530.81 592.0 Office Visit 01/28/2012 10:06a [facility] George Tipton, 56051 794.31 M.DEl 786.50 401.1 272.4 Office Visit 01/26/2012 11:40a [facility] Lizbet Christian M.D. 27134 787.91 - [place] 272.4 786.59 285.8 592.0 386.11 Office Visit 12/02/2011 10:00a [facility] Lizbet Christian M.D. 32907 787.91 - [place] 290.0 592.0 285.8 233.0 620.2 790.6 272.4 Office Visit 11/09/2011 1:30p [facility] Ana Blankenship, 76603 787.91 [facility] [place] Office Visit 10/06/2011 11:40a [facility] Internal Lizbet Christian M.D. 18070 455.0 Medicine [facility] 791.9 Office Visit 08/12/2011 12:40p [facility] Lizbet Christian M.D. 92816 461.9 - [place] Office Visit 06/14/2011 9:45a [facility] 91628 727.03 Of Romero Lewis Office Visit 06/02/2011 2:40p DO Not Use [employer] [facility] At Lizbet Christian M.D. 51872 727.03 [facility] V10.3 290.0 300.02 v04.81 Plan of Care Future Appointment(s):12/14/2017 11:15 am - Yudi Woodruff M.D. at [facility]12/28/2017 10:50 am - Sonali Foster M.D. at [facility] Internal Medicine [facility]07/18/2017 - Yudi Woodruff M.D.G30.9 Alzheimer' s disease, unspecifiedFollow up:4-5 MONTHSRecommendations:stay on namenda and donapezil. call if sudden or increased pace of changes.
--- OUTSIDE RECORDS SUMMARY | 2017-07-25 23:50 | XMS REPORT ---
:1940 External Reference #:[id number] Author Organization [facility] Address [address] [address] Phone [phone] Care Team Providers Name Role Phone Sonali Foster MD Primary Care Physician Unavailable Payers Type Date Identification Numbers Payment Provider Subscriber Health Maintenance Policy Number: Medicare Blue Ppo [facility] ([facility]) [id number] PayID: [id number] [facility] [id number] PENNY Evans [address] Health Maintenance Effective: Policy Number: Medicare Estimize Pearl [employer] ([facility]) 05/07/2011 [id number] [facility] Expires: 08/06/2014 PayID: [id number] [facility] [id number] PENNY Evans [address] Problems Date Description Provider Status Onset: 08/12/2011 [...] Type Date Description Comments 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 07/11 then tab daily x 4 days Memantine HCL 10/10 Active Tablets 10mg 180ta 1 by bs mouth two yunior Brown MD daily Donepezil HCL 12/25 Active Tablets 10mg 90tab 1 by Yudi Herrera s mouth Kacy, every day M.DEl Simvastatin 01/09 Active Tablets 20mg 90tab Take 1 s Tablet Cristian Every Day M.DEl Senior Multivitamin Active Tablets one by Unknown Plus /0000 mouth every day Fish Oil Active Capsules 1200mg 1 po qd Unknown /0000 Citalopram Active Tablets 40mg 90tab take 1 Sonali Hydrobromide s tablet by cayetano Foster M.DEl every day Pepto-Bismol Active Tablets 262mg Replaced with Budestero ne---2-3 tabs bid Vitamin D-3 Active Capsules 1000Unit 2 by Unknown /0000 mouth every day Budesonide Active Caps DR 3mg one tab [place], Part bid MARY Avila Azithromycin 12/27 Hx Tablets 250mg 6tabs take 2 J40 tab on Foster, - day 1 M.D. 07/06 then tab daily x 4 days Donepezil HCL 09/22 Hx Tablets 5mg 90tab 1 every Yudi Herrera s day Neeraj Woodruff M.D. 12/05 Ciprofloxacin HCL 03/15 Hx Tablets 250mg 14tab take one R35.0 s tablet Johnny, SILVERSMITH APPRENTICE - twice a 03/25 day for days. [...] for days Vitamin D3 06/19 Hx Capsules [id number] 8caps 1 tab by Lizbet mouth Gino, [...] Loperamide HCL Hx Capsules 2mg take one Sonlai / capsule Foster, - by mouth M.D. 12/05 every hours as needed Budesonide Hx Caps DR 3mg 3 by Unknown / Part mouth - every day 12/27 Medications Administered in Office Medication Date Status Form Strength Qnty SIG Indications Ordering Provider Celestone 3 Administered Injection Mavis mg and 3mg 011 Tan Flower Celestone 3 Administered Injection Voodoo H. mg and 3mg 011 Kathya, R.P.A.-C Celestone 3 Administered Injection Voodoo H. mg and 3mg 011 Mckeithfannie, R.P.A.-C Immunizations CPT Code Status Date Vaccine Lot # [id number] Given 04/25/2017 Influenza Virus Vaccine, Quadrivalent, Split, [id number] Preservative Free 86952 Given 06/28/2016 Pneumonia Vaccine [id number] 93734 Given 05/20/2016 Influenza Virus Vaccine, Quadrivalent, Split [id number] Virus, [place] Use 55446 Given 06/18/2015 Influenza Virus Vaccine, Quadrivalent, Split, [id number] Preservative Free 74325 Given 06/18/2015 Pneumococcal Conjugate Vaccine 13 Valent For [id number] Intramuscular Use 65296 Given 06/17/2014 Flu Vaccine Split Virus Preservative Free For Indiv 3Yr Older 21106 Given 06/17/2014 Flu Vaccine Split Virus Preservative Free For [id number] Indiv 3Yr Older 96000 Given 05/21/2013 Flu Vaccine Split Virus Preservative Free For [id number] Indiv 3Yr Older 38090 Given 02/26/2013 Tdap - Tetanus/Diptheria/Acellular Pertussis [id number] 75741 Given 12/20/2012 Zoster (Zostavax) [id number] Q2038 Given 05/04/2012 Fluzone Vaccine [id number] Q2038 Given 06/02/2011 Fluzone Vaccine Vital Signs Date Vital Result Comment 07/06/2017 Weight 141.38 lb Heart Rate 68 [...] Color Yellow Urine Appearance Clear Urine Specific Manly 1.009 Low 1.010-1.030 Urine pH 8.0 5-9 [...] 14 Sensitivities Ua Routine 03/15/2016 Ua Specific Manly 1.005 Ua PH 8 Ua Color yellow [...] Color Yellow Urine Appearance Cloudy Urine Specific Manly 1.016 1.010-1.030 Urine pH 5.0 5-9 Urine [...] Present Absent Ua Routine 09/04/2015 Ua Specific Manly 1.020 Ua PH 5 Ua Color yellow [...] Color ORANGE Yellow Appearance-Urine CLEAR Clear Specific Manly-Ur 1.017 1.010-1.030 73 Nitrite (SEE NOTE) Negative 74 Ohegrvsrueen-Jy-UMY (SEE NOTE) Negative 75 Protein-Urine (SEE NOTE) [...] Color YELLOW Yellow Appearance-Urine CLEAR Clear Specific Manly-Ur 1.012 1.010-1.030 Esterase-Urine TRACE Negative Nitrite NEGATIVE Negative Haqtkjfsybwd-Cj-BPH NEGATIVE Negative Protein-Urine NEGATIVE Negative PH-Urine 7.0 [...] 160-189 mg/dL Very High: >189 mg/dL 6 [id number] 7 SEE RESULT BELOW Name: PEARL VERNON : [address]: Naresh Valdovinos MD Acct: [id number] Unit: [id number] AGE: 76 Location: ENDOC Re10/10/16 SEX: F Status: DEP REF SPEC: JASON: 10/10/[address] [facility] [address]: Naresh Valdovinos MD REQ: [id number] RECD: 10/10/16 STATUS: ALONDRA WRIGHT DR: Sonali Foster MD _ ORDERED: LEVEL IV COMMENTS: [id number] FINAL DIAGNOSIS Colon, right, biopsy: -- Lymphocytic [...] performed at Main Lab DEPARTMENT OF PATHOLOGY, [address] [place] [address] Wilian Graves M.D. Director [facility] # [id number] 8 SEE RESULT BELOW Name: PEARL VERNON : [address]: Sonali Foster MD Acct: [id number] Unit: [id number] AGE: 76 Location: [facility] Re08/29/16 SEX: F Status: REG REF SPEC: [id number] JASON: 08/29/16-[address] [facility] [address]: Sonali Foster MD REQ: [id number] RECD: 08/29/16 STATUS: COMP _ SOURCE: OLIVE SPDESC: ORDERED: Genoveva cisse PCR Procedure Result Reported Site Stool Specimen Description Final 08/31/16- 0815 ML Stool Color Dark Brown Stool Form Nonformed Stool Consistency Liquid C. difficile PCR Final 08/30/16- 1222 ML Organism 1 027 Presumptive NEGATIVE Organism 2 Toxigenic C.diff NEGATIVE * ML - MAIN LAB ([facility]) . END OF REPORT * ML=Testing performed at Main Lab DEPARTMENT OF PATHOLOGY, [address] [place] [address] Wilian Graves M.D. Director [facility] # [id number] 9 SEE RESULT BELOW Name: PEARL VERNON : [address]: Sonali Foster MD Acct: [id number] Unit: [id number] AGE: 76 Location: [facility] Re08/26/16 SEX: F Status: REG REF SPEC: [id number] JASON: 08/26/[address]: Sonali Foster MD REQ: [id number] RECD: 08/26/16 STATUS: RES _ SOURCE: STOOL [facility]: ORDERED: Stool Culture, O P (Full) Procedure [...] not performed * ML - MAIN LAB ([facility]) . END OF REPORT * ML=Testing performed at Main Lab DEPARTMENT OF PATHOLOGY, [address] [place] [address] Wilian Graves M.D. Director [facility] # [id number] 10 SEE RESULT BELOW Name: PEARL VERNON : [address]: Sonali Foster MD Acct: [id number] Unit: [id number] AGE: 76 Location: [facility] Re08/26/16 SEX: F Status: REG REF SPEC: [id number] JASON: 08/26/16-[address] [facility] [address]: Sonali Foster MD REQ: [id number] RECD: 08/26/16 STATUS: COMP _ SOURCE: STOOL SPDESC: ORDERED: Stool Culture, O P (Full) COMMENTS: Verbal to MARGARET SILVESTRE by [email or web address] at 1455 on 08/26/16. Results read back [...] performed at Main Lab DEPARTMENT OF PATHOLOGY, [address] [place] [address] Wilian rGaves M.D. Director [facility] # [id number] Patient: PEARL VERNON [id number] (Continued) Specimen: [id number] Collected: 08/26/16 Received: 08/26/16 (Continued) Procedure Result [...] not performed * ML - MAIN LAB ([facility]) . END OF REPORT * ML=Testing performed at Main Lab DEPARTMENT OF PATHOLOGY, [address] [place] [address] Wilian Graves M.D. Director [facility] # [id number] 11 SOURCE: STOOL PARASITIC EXAMINATION FINAL No parasites seen. Cryptosporidium, Cyclospora, and microsporidia are not readily detected by this method. Single negative specimen does not rule out parasitic infection. Test Performed by: [address] [address] Top Cager: Hieu Taveras II, M.D., Ph.D. 12 *Ascorbic acid is present which may interfere with detection of blood. 13 SEE RESULT BELOW Name: PEARL VERNON : [address]: Juan Luis Turner NP Acct: [id number] Unit: [id number] AGE: 75 Location: LAB Re04/14/16 SEX: F Status: REG REF SPEC: [id number] JASON: 04/14/16-[address]: Juan Luis uTrner NP REQ: [id number] RECD: 04/14/16-1206 STATUS: COMP _ SOURCE: URINE SPDESC: ORDERED: Urine Culture Procedure Result Reported Site Urine Culture Final 04/15/16- 1403 ML No growth of clinically significant organisms * ML - MAIN LAB ([facility]) . END OF REPORT * ML=Testing performed at Main Lab DEPARTMENT OF PATHOLOGY, [address] [place] [address] Wilian Graves M.D. Director [facility] # [id number] 14 SEE RESULT BELOW Name: PEARL VERNON : [address]: Juan Luis Turner NP Acct: [id number] Unit: [id number] AGE: 75 Location: [facility] Re03/15/16 SEX: F Status: REG REF SPEC: [id number] JASON: 03/15/16-[address]: Juan Luis Turner NP REQ: [id number] RECD: 03/15/16 STATUS: COMP _ SOURCE: URINE [facility]: ORDERED: Urine Culture COMMENTS: [id number] Procedure Result Reported Site Urine Culture Final 03/21/16- 1133 ML Organism 1 PROTEUS MIRABILIS [place] Count 10-25,000 (Moderate) CFU/ML * This is [...] performed at Main Lab DEPARTMENT OF PATHOLOGY, [address] [place] [address] Wilian Graves M.D. Director [facility] # [id number] Patient: PEARL VERNON [id number] (Continued) Specimen: [id number] Collected: 03/15/16 Received: 03/15/16160 (Continued) Procedure Result Reported Site Urine Culture Final (continued) Contact the Microbiology Department for any additional antibiotic reporting. * ML - MAIN LAB ([facility]) . END OF REPORT * ML=Testing performed at Main Lab DEPARTMENT OF PATHOLOGY, [address] [place] [address] Wilian Graves M.D. Director [facility] # [id number] 15 Desirable <150 Borderline high 150-199 High [...] [address]: Nils Salomon MD Acct: [id number] Unit: [id number] AGE: 75 Location: [facility] Re11/06/15 SEX: F Status: REG REF SPEC: [id number] JASON: 11/06/[address] [facility] [address]: Nils Salomon MD REQ: [id number] RECD: 11/06/15 STATUS: ALONDRA WRIGHT DR: Lizbet Orr MD _ ORDERED: LEVEL IV FINAL DIAGNOSIS Skin, right medial infraorbital cheek, excision: -- Scar and residual basal cell carcinoma, superficial and nodular type, focal micronodular pattern. -- Deep, tip, and lateral margins are clear. COMMENT: The previous lesion at this site has been completely excised. CLINICAL HISTORY See [facility] [id number]. PRE-OPERATIVE DIAGNOSIS Basal cell carcinoma, suture peterson 12 o'clock superior apex margin. GROSS DESCRIPTION The specimen is received in formalin labeled, Excision Basal Cell Carcinoma Right Medial Infraorbital Cheek, Suture Peterson 12:00 Superior [place] Margin, and consists of a 2.5 x [...] performed at Main Lab DEPARTMENT OF PATHOLOGY, [address] [place] [address] Wilian Graves M.D. Director [facility] # [id number] 21 Because ethnic data is not always [...] 5 Kidney failure <15 (or dialysis) 22 Assistant Community Manager: [id number] CHETAN ZELAYA 23 SEE RESULT BELOW Name: PEARL VERNON : [address]: Lizbet Christian MD Acct: [id number] Unit: [id number] AGE: 75 Location: [facility] Re09/04/15 SEX: F Status: REG REF SPEC: [id number] JASON: 09/04/15-[address] [facility] [address]: Lizbet Christian MD REQ: [id number] RECD: 09/04/15 STATUS: COMP _ SOURCE: LINDA [facility]: ORDERED: Flu A B Request Procedure Result Reported Site Rapid Influenza A B Request Final 09/04/15- 7906 ML Specimen received for Influenza A/B Molecular testing * ML - MAIN LAB ([facility]) . END OF REPORT * ML=Testing performed at Main Lab DEPARTMENT OF PATHOLOGY, [address] [place] [address] Wilian Graves M.D. Director [facility] # [id number] 24 SEE RESULT BELOW Name: PEARL VERNON Criss : [address]: Lizbet Christian MD Acct: [id number] Unit: [id number] AGE: 75 Location: [facility] Re09/04/15 SEX: F Status: REG REF SPEC: [id number] JASON: 09/04/15-[address] [facility] [address]: Lizbet Christian MD REQ: [id number] RECD: 09/04/15 STATUS: COMP _ SOURCE: URINE SPDESC: ORDERED: Urine Culture Procedure Result Reported Site Urine Culture Final 09/05/15- 1359 ML No Growth (<1,000 CFU/mL) * ML - MAIN LAB ([facility]) . END OF REPORT * ML=Testing performed at Main Lab DEPARTMENT OF PATHOLOGY, [address] [place] [address] Wilian Graves M.D. Director [facility] # [id number] 25 *Ascorbic acid is present which may [...] levels within this range. Test Performed by: [address] [address] Top Cager: Manuel Vaca III, M.D. 33 -- REFERENCE VALUE -- 25-HYDROXY D TOTAL (D2+D3) Optimum levels in the healthy population are 20-50, patients with bone disease may benefit from higher levels within this range. Test Performed by: [address] [address] Top Cager: Manuel Vaca III, M.D. 34 HDL Interpretation: [...] <15 (or dialysis) 37 RUN DATE: 01/22/13 [facility] LAB LIVE PAGE 1 RUN TIME: [address] [place] [address] Specimen Inquiry Name: PEARL VERNON : [address]: Lizbet Christian MD Acct: [id number] Unit: [id number] AGE: 72 Location: [facility] Re01/18/13 SEX: F Status: REG REF SPEC: [id number] JASON: 01/18/13- [facility] DR: Lizbet Christian MD REQ: [id number] RECD: 01/21/13 STATUS: SOUT _ ORDERED: LEVEL [...] performed at Main Lab DEPARTMENT OF PATHOLOGY, [address] [place] [address] Wilian Graves M.D. Director [facility] Permit #[id number] 38 Because ethnic data is not always [...] and in selective patients <6.0%.Please refer to [place] [employer] Association Diabetic care guidelines for further [...] cranial neuropathy and myelopathy. Extramural clients Contact [facility] Inquiry at to add-on CRMP-5-IgG Western Blot, Serum. Intramural Clients, please call the Neuroimmunology Lab at [phone]. R 45 Test Performed by: [place] [address] Top Cager: Manuel Vaca III, M.D. R 46 CHOLESTEROL [...] < 5% NOT SUPPORTIVE OF DIAGNOSIS OF DC 5 - <10% INDETERMINATE; SUGGEST SERIAL STUDIES IF CLINICALLY INDICATED 10% OR > CONSISTENT WITH DIAGNOSIS OF DC . 57 New Reference Range and Interpretation effective 05/10/2002 TnI (ng/ml) INTERPRETATION Less Than 0.06 ng/mL NOT SUPPORTIVE OF DIAGNOSIS OF DC 0.06 - 0.50 ng/ml INDETERMINATE: SUGGEST SERIAL STUDIES IF CLINICALLY INDICATED. Greater than 0.5 ng/mL CONSISTENT WITH DIAGNOSIS OF DC . 58 Assay by chemiluminescence microparticle immunoassay on the [employer] Access2. The CA 125 assay is not [...] has been shown to interfere with the Jendrassik-Algonac method for measuring total bilirubin. Samples from [...] IN SELECTIVE PATIENTS <6.0%. PLEASE REFER TO [place] [employer] DIABETIC CARE GUIDELINES FOR FURTHER INFORMATION. 67 Anion gap measurement may be of limited value in the presence of any alkalosis, especially in a combined acid base disorder. . 68 A metabolite of Naproxen, O-desmethylnaproxen, has been shown to interfere with the Jendrassik-Algonac method for measuring total bilirubin. Samples from [...] TO PHYSICIAN(S) OFFICE. 71 RUN DATE: 11/27/11 [facility] NMI LIVE PAGE 1 RUN TIME: 708 Specimen Inquiry RUN USER: INTERFACE Name: PEARL VERNON Status: DIS IN Re11/23/11 Age/Sex: 71/F Unit#: [id number] Location: [facility] : 41 SPEC #: [id number] JASON: 11/22/11 STATUS: COMP REQ #: [id number] RECD: 11/22/[address]: Ragini QIU, Jacklyn Morse SOURCE: BLOOD ENTR: 11/22/[address]: Gino QIU,Lizbet Cervantes SPDESC: BLOOD,VENO ORDERED: BLOOD CULTURE ACT WKST: 11/23/11 #1 Procedure Result Verified Site > AEROBIC CULTURE BOTTLE Final -09 ML NO GROWTH AFTER 5 DAYS > ANAEROBIC CULTURE BOTTLE Final -0709 ML NO GROWTH AFTER 5 DAYS - [facility] Permit #[id number] [address] [place] [address] DEPARTMENT OF PATHOLOGY, [address] [place] [address] [facility] Permit #[id number] Wilian Graves M.D. Director Dick Alexander M.D. Gasoline Engine Assembler 72 Lymphopenia % 73 UNABLE TO CONFIRM [...] 0.06 ng/mL NOT SUPPORTIVE OF DIAGNOSIS OF DC 0.06 - 0.50 ng/ml INDETERMINATE: SUGGEST SERIAL STUDIES IF CLINICALLY INDICATED. Greater than 0.5 ng/mL CONSISTENT WITH DIAGNOSIS OF DC . 84 Anion gap measurement may be [...] <15 (or dialysis) 90 RUN DATE: 11/12/11 [facility] NMI LIVE PAGE 1 RUN TIME: 1027 Specimen Inquiry RUN USER: INTERFACE Name: PEARL VERNON Status: REG REF Re/04/12 Age/Sex: 71/F Unit#: [id number] Location: : 41 SPEC #: [id number] JASON: 11/09/11 STATUS: COMP REQ #: [id number] RECD: 11/09/[address]: Ana Ro NP SOURCE: STOOL ENTR: 11/09/[address]: JACQUELINE: ORDERED: E.COLI 0157:H7, STOOL CULTURE, O P: DREA/Genoveva YEE DNA QUERIES: MEDENT REQUISITION # [id number] ACT WKST: B 11/12/11 #1 Procedure Result [...] is requested. Contact the Microbiology Department at [phone]. TEST LIMITATIONS: DEPARTMENT OF PATHOLOGY, [address] [place] [address] [facility] Permit #[id number] aTn Garrison M.D. Gasoline Engine Assembler RUN DATE: 11/12/11 [facility] NMI LIVE PAGE 2 RUN TIME: 1027 Specimen Inquiry RUN USER: INTERFACE Name: PEARL VERNON Status: REG REF Re11/09/11 Age/Sex: 71/F Unit#: [id number] Location: : 41 -- -- CONTINU ED [...] to 32% in cystic fibrosis patients. - [facility] Permit #[id number] [address] [place] [address] DEPARTMENT OF PATHOLOGY, [address] [place] [address] [facility] Permit #[id number] Tan Garrison M.D. Gasoline Engine Assembler 91 ---- RUN DATE: 11/03/11 [facility] NMI LIVE PAGE 1 RUN TIME: 1446 Specimen Inquiry RUN USER: INTERFACE -- Name: PEARL VERNON Status: REG REF Re11/02/11 Age/Sex: 71/F Unit#: [id number] Location: [facility] : 41 -- Specimen: [id number] ALONDRA Spec Date:11/02/11- Dr: Naresh omalley MD Spec Type: SURGICAL P Received:11/02/11-1136 Copies to: Lizbet allison MD SPECIMEN RANDOM [...] 11/03/11 1442 -- -- DEPARTMENT OF PATHOLOGY, [address] [place] [address] [facility] Permit #[id number] Wilian Graves M.D. Director Dick Alexander M.D. Health Practice Manager Dir bucky -- 92 CHOLESTEROL INTERPRETATION: Desirable: [...] Density Test Completed 12/16/2013 Mammogram Completed 01/18/2013 20932 Shave Of Lesion, Face,Ears,Eyelids,Nose,Lips 0.5CM Or Completed Less 12/11/2012 Bone Mineral Density Test Completed 10/09/2012 Mammogram Completed 03/30/2012 27110 EKG Tracing & Interpretation Completed 01/28/2012 00238 Stress Test Supervsn W/Out I/R Completed 01/28/2012 58858 Treadmill Interp/Report Only Completed 11/02/2011 Colonoscopy Completed 10/25/2011 Mammogram Completed 09/29/2011 Mammogram Completed 06/14/2011 44764 Inject Tendon Sheath Or Ligament Aponeurosis Eg Plantar Completed Fascia 06/14/2011 53291 Inject Tendon Sheath Or Ligament Aponeurosis Eg Plantar Completed Fascia Encounters Type Date Location Provider CPT E/M Dx Office Visit 12/27/2016 [facility] Yudi Woodruff, 48124 G30.9 10:45a Services Of Ana Maddox Office Visit 12/05/2016 [facility] Internal Medicine Blair Mendoza, 44951 J20.9 1:00p - Annabel Maddox Office Visit 08/25/2016 [facility] Sonali Foster M.D. 86147 R19.7 1:00p - Annabel Z85.828 Office Visit 06/28/2016 11:50a [facility] Medicine Sonali Foster M.D. 51051 L98.9 - [place] Z23 Office Visit 06/28/2016 10:45a [facility] Yudi Woodruff, 22941 F03.90 Services Of Ana Maddox Office Visit 03/15/2016 11:40a [facility] [place] [address] R35.0 - [place] Office Visit 01/13/2016 11:50a [facility] Sonali Foster M.D. 05424 J20.9 - [place] Office Visit 12/24/2015 9:45a [facility] Yudi Woodruff, 69300 R41.3 Services Of Vendor Specialist M.D. Office Visit 10/15/2015 1:00p [facility] Lizbet Christian M.D. 37378 R42 - [place] Office Visit 09/08/2015 4:40p [facility] Lizbet Christian M.D. 38401 R50.9 - [place] Office Visit 09/04/2015 12:40p [facility] Lizbet Christian M.D. 55920 R50.9 - [place] N39.0 Office Visit 06/25/2015 9:15a [facility] Yudi Woodruff, 73723 R41.3 Services Of Vendor Specialist M.D. Office Visit 06/18/2015 10:00a [facility] Lizbet Christian M.D. 17672 E78.2 - [place] L82.1 R41.1 E55.9 Z23 Office Visit 12/18/2014 11:15a [facility] Yudi Woodruff, 61653 780.93 Services Of Vendor Specialist M.D. Office Visit 07/24/2014 10:20a [facility] Lizbet Christian M.D. 65689 840.9 - [place] 401.1 Office Visit 06/26/2014 10:30a [facility] Yudi Woodruff, 89007 780.93 Services Of Vendor Specialist M.D. Office Visit 02/13/2014 2:20p [facility] Lizbet Christian M.D. 95496 780.4 - [place] Office Visit 02/04/2014 11:20a [facility] Lizbet Christian M.D. 11944 780.79 - [place] 401.1 Office Visit 12/26/2013 10:45a [facility] Yudi Woodruff, 72483 780.93 Services Of Vendor Specialist M.D. Office Visit 12/12/2013 11:20a [facility] Lizbet Christian M.D. 03042 461.9 - [place] V76.19 268.9 Office Visit 08/22/2013 9:20a [facility] Lizbet Christian M.D. 60789 V72.81 - [place] 366.8 780.93 401.9 285.8 272.2 733.99 Office Visit 06/10/2013 10:45a [facility] Yudi Woodruff, 19964 780.93 Services Of Vendor Specialist M.D. Office Visit 05/21/2013 11:00a [facility] Lizbet Christian M.D. 87170 233.0 - [place] 905.7 455.0 780.79 V04.81 Office Visit 02/26/2013 2:10p [facility] Sonali Parrishan, 28900 923.10 - [place] M.DEl V06.1 Office Visit 12/20/2012 9:40a [facility] Lizbet Christian M.D. 15988 331.0 - [place] 285.8 401.9 272.2 733.99 V04.89 Office Visit 12/07/2012 10:45a [facility] Yudi Woodruff, 19181 331.0 Services Of Vendor Specialist M.D. 294.10 Office Visit 07/19/2012 3:40p [facility] Lizbet Christian M.D. 00604 285.8 - [place] 233.0 Office Visit 06/20/2012 1:45p [facility] Yudi Woodruff, 98189 331.0 Services Of Vendor Specialist M.D. 294.10 Office Visit 03/30/2012 1:40p [facility] Lizbet Christian M.D. 13313 V72.81 - [place] 401.9 272.2 290.0 285.8 233.0 620.2 Office Visit 01/31/2012 11:20a [facility] Lizbet Christian M.D. 82565 786.50 - [place] 530.81 592.0 Office Visit 01/28/2012 10:06a [facility] Mitchelltajailyn Tipton, 95870 794.31 Tan 786.50 401.1 272.4 Office Visit 01/26/2012 11:40a [facility] Lizbet Christian M.D. 55005 787.91 - [place] 272.4 786.59 285.8 592.0 386.11 Office Visit 12/02/2011 10:00a [facility] Lizbet Christian M.D. [id number] 787.91 - [place] 290.0 592.0 285.8 233.0 620.2 790.6 272.4 Office Visit 11/09/2011 1:30p [facility] Internal Ana Blankenship, 87262 787.91 [facility] [place] Office Visit 10/06/2011 11:40a [facility] Lizbet Christian M.D. 16567 455.0 [facility] 791.9 Office Visit 08/12/2011 12:40p [facility] Internal Medicine Lizbet Christian M.D. 47327 461.9 - [place] Office Visit 06/14/2011 9:45a [facility] [address] 727.03 [facility] Office Visit 06/02/2011 2:40p DO Not Use [facility] At Liz[place] Christian M.D. 27978 727.03 [facility] V10.3 290.0 300.02 v04.81 Plan of Care Future Appointment(s):07/18/2017 3:15 pm - Yudi Woodruff M.D. at [place]12/28/2017 10:50 am - Sonali Foster M.D. at [facility] Internal Medicine [facility]07/06/2017 - Sonali Foster M.D.J40 Bronchitis, not specified as acute or chronicNew Medication:Azithromycin 250 mgComments:we discussed starting the antibiotic as your symptoms are not getting betterFollow up:may for a medicare physical
[2017-07-26 01:02] LABS: Hematocrit 36 % (35-47); Hemoglobin 12.3 g/dl (12.0-16.0); Mean Corpuscular HGB Conc 34 g/dl (31-36); Mean Corpuscular Hemoglobin 30 pg (27-31); Mean Corpuscular Volume 90 fL (80-97); Mean Platelet Volume 8 um3 (7.4-10.4); Red Blood Count 4.06 10^6/ul (4.0-5.4); Red Cell Distribution Width 15 % (10.5-15); White Blood Count 6.5 10^3/ul (3.5-10.8)
[2017-07-26 01:22] LABS: Albumin 3.6 g/dL (3.2-5.2); BUN/Creatinine Ratio 29.3 (8-20); Calcium 8.6 mg/dL (8.6-10.3); EGFR African American 96.6 (>60); EGFR Non-African American 75.1 (>60); Globulin 2.7 g/dL (2-4); Magnesium 2.1 mg/dL (1.9-2.7); Potassium 3.6 mmol/L (3.5-5.0); Total Bilirubin 0.4 mg/dL (0.2-1.0); Total Protein 6.3 g/dL (6.4-8.9)
[2017-07-26] MEDS ORDERED: Aspirin TAB* 325 MG PO ONE (01:28)
[2017-07-26] MEDS ORDERED: Acetaminophen TAB* 325 MG PO PRN (02:20)
[2017-07-26] MEDS ORDERED: Melatonin (NF) 3 MG TAB PO PRN (02:20)
[2017-07-26] MEDS ORDERED: Ondansetron INJ* 2 MG/ML VIAL IV PRN (02:20)
[2017-07-26] MEDS ORDERED: NS 0.9% 1000 ML* 1,000 ML IV SCH (02:30)
[2017-07-26] MEDS ORDERED: Omeprazole CAP* 20 MG PO SCH (06:00)
--- NOTE | 2017-07-26 06:29 | HP ---
H&P (Free Text) History and Physical: PCP: Malina Foster MD Date/Time: 07/26/2017214 CC: chest pain HPI: Mrs Mejia is a 77YO female HX moderate Alzheimer's, HTN, & HLD who doesn' t recall having chest pain yesterday, but does know that that is why she is in the hospital. She cannot give any characterizing information, but does state she currently has no chest pain, SOB, nausea, sweating, palpitations, or light- headedness. Per ED record pain onset was ~2200, lasted ~5-10 minutes before spontaneously resolving. There were no reported exacerbating or alleviating factors. She has no cardiac HX. PMedHx HTN HLD Alzheimer's dementia, moderate breast CA s/p lumpectomy & radioTX depression Ambulatory Orders Citalopram TAB* [Celexa TAB*] 40 mg PO DAILY 08/20/13 Donepezil TAB* [Aricept TAB*] 10 mg PO DAILY 08/20/13 [place]-3 Fatty Acids [Fish Oil] 1 cap PO DAILY 08/20/13 Simvastatin TAB(NF) [Zocor(NF)] 20 mg PO 1700 08/20/13 Cholecalciferol TAB* [Vitamin D TAB*] 1,000 unit PO DAILY 10/04/16 Memantine XR CAP* [Namenda XR CAP*] 28 mg PO BID 10/04/16 Multivitamins/Minerals TAB* [Thera M Plus TAB*] 1 tab PO DAILY 10/04/16 Budesonide [Entocort EC] 3 mg PO BID 07/26/17 Allergies Gluten Meal Adverse Reaction (Verified 09/04/13 08:54) See Comment GI UPSET PSurgHx tonsillectomy ? 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 status FamHx: Father: "heart troubles"; Mother: Alzheimer's ROS: as above, otherwise reviewed and all were negative vitals: Vital Signs Temp 36.4 C 07/26/17 05:00 Pulse 57 07/26/17 05:00 Resp 18 07/26/17 05:00 BP 168/68 07/26/17 05:00 Pulse Ox 97 07/26/17 05:00 Intake & Output 12/07/25/17 07/26/17 11:59 23:59 11:59 Weight 63.503 kg 65.136 kg Constitutional: NAD, normally developed, well-nourished white female HEENM: atraumatic; sclera/conjunctiva: anicteric/clear; hearing: clinically intact; oropharynx: clear, mucosa moist Neck: soft tissue: non-tender; thyroid: normal Pulmonary: clear to auscultation bilaterally, good aeration, no accessory muscle use CV: RR/RR, normal S1S2, no carotid bruit, no jugular venous distention, 2+ B DP/ PT, no edema Abdominal: soft, non-distended, non-tender, no rebound/guarding/rigidity, normoactive bowel sounds, no hepatosplenomegaly or masses, no costovertebral angle tenderness Musculoskeletal: general: grossly intact, no tenderness to palpation Integumental: normal appearance and texture of exposed skin Psychiatric orientation: AA&O to PP, loosely to situation affect: calm mood: pleasant eye contact: good content: reliable, often unable to answer 2nd Alzheimer's but admits she doesn' t know memory: impaired recent responses: timely insight: fair Testing: Lab Results 07/26/17 07/26/17 07/26/17 Range/Units 00:44 00:44 00:44 WBC 6.5 (3.5-10.8) 10^3/ul RBC 4.06 (4.0-5.4) 10^6/ul Hgb 12.3 (12.0-16.0) g/dl Hct 36 (35-47) % MCV 90 (80-97) fL MCH 30 (27-31) pg MCHC 34 (31-36) g/dl RDW 15 (10.5-15) % Plt Count 223 (150-450) 10^3/ul MPV 8 (7.4-10.4) um3 Neut % (Auto) 59.8 (38-83) % Lymph % (Auto) 24.9 L (25-47) % [place] % (Auto) 12.5 H (1-9) % Eos % (Auto) 2.0 (0-6) % Baso % (Auto) 0.8 (0-2) % Absolute Neuts (auto) 3.9 (1.5-7.7) 10^3/ul Absolute Lymphs (auto) 1.6 (1.0-4.8) 10^3/ul Absolute Monos (auto) 0.8 (0-0.8) 10^3/ul Absolute Eos (auto) 0.1 (0-0.6) 10^3/ul Absolute Basos (auto) 0 (0-0.2) 10^3/ul Absolute Nucleated RBC 0 10^3/ul Nucleated RBC % 0 Sodium 133 (133-145) mmol/L Potassium 3.6 (3.5-5.0) mmol/L Chloride 102 (101-111) mmol/L Carbon Dioxide 26 (22-32) mmol/L Anion Gap 5 (2-11) mmol/L BUN 22 (6-24) mg/dL Creatinine 0.75 (0.51-0.95) mg/dL Est GFR ( Amer) 96.6 (>60) Est GFR (Non-Af Amer) 75.1 (>60) BUN/Creatinine Ratio 29.3 H (8-20) Glucose 105 H (70-100) mg/dL Calcium 8.6 (8.6-10.3) mg/dL Magnesium 2.1 (1.9-2.7) mg/dL Total Bilirubin 0.40 (0.2-1.0) mg/dL AST 14 (13-39) U/L ALT 13 (7-52) U/L Alkaline Phosphatase 55 (34-104) U/L Troponin I 0.00 (<0.04) ng/mL B-Natriuretic Peptide 56 ( - 100) pg/mL Total Protein 6.3 L (6.4-8.9) g/dL Albumin 3.6 (3.2-5.2) g/dL Globulin 2.7 (2-4) g/dL Albumin/Globulin Ratio 1.3 (1-3) 07/26/17 Range/Units 04:26 WBC (3.5-10.8) 10^3/ul RBC (4.0-5.4) 10^6/ul Hgb (12.0-16.0) g/dl Hct (35-47) % MCV (80-97) fL MCH (27-31) pg MCHC (31-36) g/dl RDW (10.5-15) % Plt Count (150-450) 10^3/ul MPV (7.4-10.4) um3 Neut % (Auto) (38-83) % Lymph % (Auto) (25-47) % [place] % (Auto) (1-9) % Eos % (Auto) (0-6) % Baso % (Auto) (0-2) % Absolute Neuts (auto) (1.5-7.7) 10^3/ul Absolute Lymphs (auto) (1.0-4.8) 10^3/ul Absolute Monos (auto) (0-0.8) 10^3/ul Absolute Eos (auto) (0-0.6) 10^3/ul Absolute Basos (auto) (0-0.2) 10^3/ul Absolute Nucleated RBC 10^3/ul Nucleated RBC % Sodium (133-145) mmol/L Potassium (3.5-5.0) mmol/L Chloride (101-111) mmol/L Carbon Dioxide (22-32) mmol/L Anion Gap (2-11) mmol/L BUN (6-24) mg/dL Creatinine (0.51-0.95) mg/dL Est GFR ( Amer) (>60) Est GFR (Non-Af Amer) (>60) BUN/Creatinine Ratio (8-20) Glucose (70-100) mg/dL Calcium (8.6-10.3) mg/dL Magnesium (1.9-2.7) mg/dL Total Bilirubin (0.2-1.0) mg/dL AST (13-39) U/L ALT (7-52) U/L Alkaline Phosphatase (34-104) U/L Troponin I 0.00 (<0.04) ng/mL B-Natriuretic Peptide ( - 100) pg/mL Total Protein (6.4-8.9) g/dL Albumin (3.2-5.2) g/dL Globulin (2-4) g/dL Albumin/Globulin Ratio (1-3) ECG, personally reviewed: sinus bradycardia rate 56, non-specific ST-T changes V2-V6 CXR, personally reviewed: no acute process Impression: 77F presenting with chest pain for r/o ACS DIAGNOSIS & PLAN Primary chest pain r/o ACS : aspirin 325mg given in ED : no beta jared 2nd bradycardia : telemetry : trend troponin : supplemental oxygen : chemical NST in AM : consider cardiology consult pending above results : supportive care Secondary HTN : no medications currently : monitor HLD : continue simvastatin Alzheimer's dementia, moderate : continue donepezil & memantine HX breast CA : no acute issues depression : continue citalopram Admission Rational: observation for r/o ACS DVTp: heparin SQ Code Status: full HCP:
--- NOTE | 2017-07-26 08:06 | RAD ---
HISTORY: Chest pain COMPARISONS: September 04, 2015 VIEWS: 1: frontal portable view of the chest at 12:33 PM FINDINGS: LINES AND TUBES: None. CARDIOMEDIASTINAL SILHOUETTE: The cardiomediastinal silhouette is stable. PLEURA: The costophrenic angles are sharp. No pleural abnormalities are noted. LUNG PARENCHYMA: The lungs are clear. ABDOMEN: The upper abdomen is clear. There is no subphrenic gas. BONES AND SOFT TISSUES: No bone or soft tissue abnormalities are noted. IMPRESSION: NO ACTIVE CARDIOPULMONARY DISEASE.
[2017-07-26] MEDS ORDERED: Docusate CAP* 100 MG PO SCH (09:00)
[2017-07-26] MEDS ORDERED: BUDESONIDE 3 MG PO SCH (09:00)
[2017-07-26] MEDS ORDERED: Citalopram TAB* 40 MG PO SCH (09:00)
[2017-07-26] MEDS ORDERED: Donepezil TAB* 5 MG PO SCH (09:00)
[2017-07-26] MEDS ORDERED: Memantine XR CAP* 28 MG CAP.XR PO SCH ×2 (09:00)
[2017-07-26 11:29] VITALS: BP 144/68
[2017-07-26] MEDS ORDERED: Regadenoson* 0.4 MG/5 ML SYRINGE ONE (14:08)
--- NOTE | 2017-07-26 14:56 | RAD ---
HISTORY: Chest pain COMPARISONS: None TECHNIQUE: A 1 day stress/rest myocardial perfusion study was performed, with pharmacologic stress. The stress portion was monitored by Dr. Rogers. Gated SPECT imaging was performed, with CT-based attenuation correction DOSE: Stress: Technetium 99m tetrofosmin, 25.02 millicuries, injected at 1:45 PM on July 26, 2017 Rest: Technetium 99m tetrofosmin, 10.98 millicuries, injected at 11:57 AM on July 26, 2017 Pharmacologic agent: Lexiscan FINDINGS: CARDIAC MONITORING: No EKG criteria of ischemia with stress EF: 80% TID: 1.03 MOTION: Normal motion, with normal wall thickening. PERFUSION: There is a small fixed defect of the septum. No reversible defects are noted.. OTHER: None IMPRESSION: SMALL FIXED DEFECT OF THE SEPTUM WHICH MAY REFLECT PREVIOUS INFARCT. NO REVERSIBLE HYPOPERFUSION TO SUGGEST ISCHEMIA. ASSESSMENT: LOW RISK. Based on imaging criteria from ACC/AHA 2002. Guideline Update for the Management of Patient's with Chronic Stable Angina, table 23. Noninvasive Risk Stratification. CPT II Codes: 8029U7B
--- NOTE | 2017-07-26 15:35 | PN ---
Subjective Date of Service: 07/26/17 Interval History: Patient seen and examined at bedside. Denies fever, chills, shortness of breath , chest discomfort, N/V/D. Tele: Sinus landry to sinus rhythm, rate 50-60's. Family History: Unchanged from Admission Social History: Unchanged from Admission Past Medical History: Unchanged from Admission Objective Active Medications: Acetaminophen (Tylenol Tab*) 650 mg PO Q6H PRN Reason: FEVER/PAIN Aspirin (Aspirin Ec Low Dose*) 81 mg PO DAILY OREN Atorvastatin Calcium (Lipitor*) 10 mg PO 1700 OREN Budesonide (Budesonide Cap(Nf)) 3 mg PO BID OREN Citalopram Hydrobromide (Celexa Tab*) 40 mg PO DAILY OREN Docusate Sodium (Colace Cap*) 200 mg PO BID OREN Donepezil HCl (Aricept Tab*) 10 mg PO DAILY OREN Heparin Sodium (Porcine) (Heparin Vial(*)) 5,000 units SUBCUT Q8HR OREN Sodium Chloride (Ns 0.9% 1000 Ml*) 1,000 mls @ 50 mls/hr IV PER RATE OREN Melatonin (Melatonin (Nf)) 3 mg PO BEDTIME PRN; Protocol Reason: Sleep Memantine (Namenda Xr Cap*) 28 mg PO DAILY OREN Omeprazole (Prilosec Cap*) 20 mg PO DAILY@0600 OREN Ondansetron HCl (Zofran Inj*) 4 mg IV Q6H PRN Reason: NAUSEA Vital Signs - 8 hr 07/26/17 07/26/17 08:03 11:10 Temperature 98.0 F 97.5 F Pulse Rate 56 58 Respiratory 14 14 Rate Blood Pressure 156/69 144/68 (mmHg) O2 Sat by Pulse 98 95 Oximetry Oxygen Devices in Use Now: None Appearance: NAD, laying in bed Ears/Nose/Mouth/Throat: Mucous Membranes Moist Respiratory: Symmetrical Chest Expansion and Respiratory Effort, Clear to Auscultation Cardiovascular: NL Sounds; No Murmurs; No JVD, RRR Abdominal: NL Sounds; No Tenderness; No Distention Extremities: No Edema Skin: No Rash or Ulcers Neurological: - - Alert and Oriented to Person and Place Lines/Tubes/Other Access: Clean, Dry and Intact Peripheral IV - site benign Nutrition: Taking PO's Result Diagrams: 07/26/17 00:44 07/26/17 00:44 Assess/Plan/Problems-Billing Assessment: Mr. Mejia is a 77 yo male with PMH significant for HTN, HLD, depression, hx breast CA, alzheimer's who presented to the emergency room with complaints of chest discomfort. - Patient Problems (1) Chest pain Code(s): R07.9 - CHEST PAIN, UNSPECIFIED SNOMED Code(s): 87275818 Comment: - Denies chest pain at this time - Troponin 0.00 x3 - Nuclear cardiac stress test - low risk (2) HTN (hypertension) Code(s): I10 - ESSENTIAL (PRIMARY) HYPERTENSION SNOMED Code(s): 65009255 Comment: - Mostly normotensive - Continue to monitor (3) HLD (hyperlipidemia) Code(s): E78.5 - HYPERLIPIDEMIA, UNSPECIFIED SNOMED Code(s): 06891134 Comment: - Continue statin (4) Depression Code(s): F32.9 - MAJOR DEPRESSIVE DISORDER, SINGLE EPISODE, UNSPECIFIED SNOMED Code(s): 02299424 Comment: - Continue celexa (5) Alzheimer's dementia Code(s): G30.9 - ALZHEIMER'S DISEASE, UNSPECIFIED SNOMED Code(s): 75979168 Comment: - Continue Aricept and namenda (6) DVT prophylaxis Code(s): FIF4565 - SNOMED Code(s): 669679476 (7) Full code status Code(s): Z78.9 - OTHER SPECIFIED HEALTH STATUS SNOMED Code(s): 816615002 Status and Disposition: OBV. Stable for discharge to home today.
[2017-07-26] MEDS ORDERED: Atorvastatin* 10 MG TAB PO SCH (17:00)
[2017-07-27] MEDS ORDERED: Heparin VIAL(*) 5000 UNITS/ML VIAL (FIVE THOUSAND) SUBCUT SCH (06:00)
[2017-07-27] MEDS ORDERED: Aspirin EC Low Dose* 81 MG TAB.EC PO SCH (09:00)
--- NOTE | 2017-07-27 11:54 | DS ---
CC: Sonali Foster MD* DISCHARGE SUMMARY: DATE OF ADMISSION: 07/26/17 DATE OF DISCHARGE: 07/26/17 ATTENDING PHYSICIAN: Esequiel Hatfield MD* (dictated by Torrie Lafleur NP). PRIMARY CARE PROVIDER: Sonali Foster MD PRIMARY DIAGNOSIS: Chest pain, suspect noncardiac in nature. SECONDARY DIAGNOSES: 1. Hyperlipidemia. 2. Hypertension. 3. Alzheimer's dementia. 4. History of breast cancer. 5. Depression. STUDIES WHILE IN THE HOSPITAL: 1. Chest x-ray from 07/26/17. Radiologist impression: No active cardiopulmonary disease. 2. Chemical nuclear stress test from 07/26/17. Software Analyst observation: Resting EKG, sinus bradycardia 55, nonspecific T-wave changes with administration of regadenoson. There were no definitive EKG changes of ischemia. There was minimal ST-segment scooping with increased heart rate not definitive for ischemia, mild increase in blood pressure noted. Increase in heart rate noted. Software Analyst Conclusion: No Lexiscan-induced myocardial ischemia by EKG criteria. Nuclear portion to be reported separately by Radiology. Radiologist impression: Small fixed defect of the septum which may reflect previous infarct. No reversible hyperperfusion to suggest ischemia. Assessment: Low risk. DISCHARGE MEDICATIONS: Continued home medications: 1. Vitamin D 1000 units oral daily. 2. Entocort 3 mg oral twice daily. 3. Multivitamin 1 tablet oral daily. 4. Namenda XR 28 mg oral twice daily. 5. Simvastatin 20 mg oral daily. 6. [place]-3 fatty acids 1 capsule oral daily. 7. Aricept 10 mg oral daily. 8. Celexa 40 mg oral daily. HISTORY OF PRESENT ILLNESS/HOSPITAL COURSE: Ms. Mejia is a 77-year-old female with past medical history significant for hypertension, hyperlipidemia, Alzheimer's dementia, breast cancer, and depression who presented to the emergency room with complaints of chest pain. The patient does not recall having chest pain, but states that she knows why she is in the hospital. She was unable to give any information, she denied any shortness of breath, nausea, sweating, palpitations, or lightheadedness. According to the patient's she was still up when he went to go to bed, had been complaining of a vague discomfort and also had kicked all the covers off. He assumed she was warm, which is unusual for her. She is often under many covers. The patient was brought to the emergency room for further evaluation. While in the emergency room according to the records, the patient's pain lasted for approximately 5 to 10 minutes before spontaneous resolving. There were no reports of exacerbating or alleviating factors. The patient had an EKG showing sinus bradycardia with nonspecific ST-T changes. She had a chest x-ray showing no acute findings. The hospitalists were asked to evaluate for admission. While in the hospital, the patient was monitored on telemetry with no significant findings, although she was bradycardic. No beta-blockers were started due to this fact. She received aspirin in the ER. Her troponins were trended and were flat at 0.00. She had a chemical nuclear stress test that was low risk showing a small fixed defect. The patient remained chest pain free and it was felt that she was stable for discharge to home today. Ms. Mejia is stable for discharge to home today. Vital signs are as follows; temperature 97.6, heart rate 58, respiratory rate 14, O2 sat 95% on room air, blood pressure 144/68. DISCHARGE PLAN: Ms. Mejia is ready for discharge to home. Activity as tolerated. She should be on a heart healthy diet. The patient is currently chest pain free. I believe this was likely noncardiac. The patient reports having a cough for 2 weeks. I suspect this is actually musculoskeletal. The patient has an appointment with her primary care provider, Dr. Sonali Foster, on 08/08/16 at 9:40 a.m. She has been continued on her usual home medications. She has been asked to return to the emergency room for any chest pain or shortness of breath. This is a summarized report for a complex medical history and hospital stay. For further details, please see the entire medical record. Time for this discharge was approximately 50 minutes, greater than half of that was spent with the patient and her discussing discharge plans and instructions. CONDITION ON DISCHARGE: Stable. Reviewed by MARY SHAH 08/03/17 1450 [id number]/[facility] #: [id number] MTDYajaira
== END 2017-07-26 16:05 | disposition home or self-care (01) ==
LOC: ED 23:37 → MEDTELE 07-26 02:16
PROVIDERS: ADMIT Hospitalist; ATTEND Internal Medicine
DX: R07.9 Chest pain, unspecified (principal); E78.5 Hyperlipidemia, unspecified; I10 Essential (primary) hypertension; G30.9 Alzheimer's disease, unspecified; F02.80 Dementia in other diseases classified elsewhere, unspecified severity, without behavioral disturbance, psychotic disturbance, mood disturbance, and anxiety; Z79.82 Long term (current) use of aspirin; Z79.899 Other long term (current) drug therapy; F32.9 Major depressive disorder, single episode, unspecified
CPT/HCPCS: 36415; 71010; 78452; 80053; 83735; 83880; 84484; 85025; 93005; 93017; 96361; 96374; A9270-GY; A9502; G0378; J2785

== ENCOUNTER 2018-05-15 13:57 | Emergency (ER) | payer MEDICARE ==
[2018-05-15 17:34] LABS: ABS Basophils 0.1 10^3/ul (0-0.2); ABS Eosinophils 0.1 10^3/ul (0-0.6); ABS Lymphocytes 1.7 10^3/ul (1.0-4.8); ABS Monocytes 0.8 10^3/ul (0-0.8); ABS Neutrophils 3.9 10^3/ul (1.5-7.7); ABS Nucleated RBC 0 10^3/ul; Eosinophil % 1.4 % (0-6); Hematocrit 41 % (35-47); Lymphocyte % 25.7 % (25-47); Mean Corpuscular HGB Conc 34 g/dl (31-36); Mean Corpuscular Hemoglobin 31 pg (27-31); Mean Corpuscular Volume 90 fL (80-97); Mean Platelet Volume 7.5 um3 (7.4-10.4); Nucleated Red Blood Cells % 0; Platelet Count 262 10^3/ul (150-450); Red Blood Count 4.58 10^6/ul (4.00-5.40); Red Cell Distribution Width 15 % (10.5-15); White Blood Count 6.5 10^3/ul (3.5-10.8)
[2018-05-15 17:51] LABS: EGFR Non-African American 60.7 (>60)
--- NOTE | 2018-05-15 17:56 | RAD ---
INDICATION: Chest pain COMPARISON: Chest x-ray July 26, 2017 TECHNIQUE: PA and lateral views of the chest were obtained. FINDINGS: The heart and mediastinum are normal in size and contour. There are stable calcified atherosclerosis overlying the arch of aorta. The lungs are grossly clear. There is no evidence of large pleural effusion. Visualized bones are normal for the patient's age. There is no radiographic evidence of free air beneath the diaphragm IMPRESSION: No radiographic evidence of acute cardiopulmonary disease.
--- NOTE | 2018-05-15 18:25 | ED ---
HPI Chest Pain - HPI Summary HPI Summary: Patient is a 78 y/o F w/ c/o left anterior, non-radiating chest discomfort onsetting around 1400. Patient's , Mt, is present in the room and contributes most of HPI as patient has Alzheimer's. SOB and nausea is denied. Slight BROWN is noted earlier, since resolved. Some dizziness is reported and still present. She notes, "I do not feel like myself". Around 1400 today, patient was doing yoga with her friend. She was going to go swimming but at this time reports onset of chest pain. Her friend called the patient's and stated that the patient wanted to go home. Due to chest pain, they decided to come to ED. PMHx of hyperlipidema. No Hx of blood clot, had breast CA for which she had a lumpectomy, no chemo or radiation. PSHx of tonsillectomy, ovarian cyst removal. She had a cardiac stress test done in 2011. Alcohol usage and drug usage is denied. FMHx of cardiac disease in father, mother with CA and Alzheimer's. PCP is Dr. Foster. In room, 171/73, 97 o2, pulse 54. 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 Negative: Shortness of Breath, Nausea - Risk Factors AMI/ACS Risk Factors: Family History, Hypertension, Dyslipidemia - Additional Pertinent History Primary Care Physician: ARELIS - Allergy/Home Medications Allergies/Adverse Reactions: Allergies Allergy/AdvReac Type Severity Reaction Status Date / Time gluten Allergy GI Upset Verified 05/15/18 14:13 Home Medications: Home Medications Memantine HCl 10 mg PO BID 05/15/18 [History Confirmed 05/15/18] PMH/Surg Hx/FS Hx/Imm Hx Previously Healthy: No Cardiovascular History: Reports: Hx Hypertension - ON MEDICATION History: Reports: Hx Kidney Stones Musculoskeletal History: Denies: Hx Rheumatoid Arthritis Sensory History: Reports: Hx Cataracts, Hx Contacts or Glasses - GLASSES Denies: Hx Hearing Aid Opthamlomology History: Reports: Hx Cataracts, Hx Contacts or Glasses - GLASSES Neurological History: Reports: Hx Dementia - Alzheimer's Psychiatric History: Reports: Hx Depression - ON MEDICATION - Cancer History Cancer Type, Location and Year: breast CA Hx Chemotherapy: No Hx Radiation Therapy: Yes - Surgical History Surgery Procedure, Year, and Place: RIGHT BREAST LUMPECTOMY 2002 Hx Anesthesia Reactions: No - Immunization History Date of Influenza Vaccine: 2017 Infectious Disease History: No Infectious Disease History: Denies: Traveled Outside the [place] in Last 30 Days - Family History Known Family History: Positive: Cardiac Disease - father, Other - mother with cancer and Alzheimer's - Social History Lives: With Family Alcohol Use: None Substance Use Type: Reports: None Smoking Status (MU): Never Smoked Tobacco Review of Systems Positive: Other - does not feel like herself Positive: Chest Pain - left anterior Negative: Shortness Of Breath Negative: Nausea Skin: Negative Neurological: Other - dizziness Positive: Headache - since resolved Psychological: Normal All Other Systems Reviewed And Are Negative: Yes Physical Exam - Summary Physical Exam Summary: Appearance: Well-appearing, minimal pain distress, well-nourished Skin: Warm, color reflects adequate perfusion, dry Head: Normal Head/Face inspection, atraumatic Eyes: Conjunctiva clear ENT: Normal inspection Neck: Supple, no nodes, no JVD Respiratory: Lungs clear, normal breath sounds, no respiratory distress Cardio: RRR, No murmur, pulses normal, brisk capillary refill; pain is reproducible in left ant chest and is minimal Abdomen: Soft, nontender Bowel sounds: Present Musculoskeletal: Strength Intact/ROM intact, no calf tenderness, no edema. Psychological: Normal Neuro: Alert, muscle tone normal, no focal deficit Triage Information Reviewed: Yes Vital Signs On Initial Exam: Initial Vitals Temp Pulse Resp BP Pulse Ox 97.8 F 64 16 166/69 95 05/15/18 14:08 05/15/18 14:08 05/15/18 14:08 05/15/18 14:08 05/15/18 14:08 Vital Signs Reviewed: Yes Diagnostics - Vital Signs Vital Signs Temp Pulse Resp BP Pulse Ox 05/15/18 18:14 97.2 F 05/15/18 16:23 97.6 F 62 16 198/72 99 05/15/18 14:08 97.8 F 64 16 166/69 95 - Laboratory Lab Results: Lab Results 05/15/18 05/15/18 05/15/18 Range/Units 17:24 17:24 17:24 WBC 6.5 (3.5-10.8) 10^3/ul RBC 4.58 (4.00-5.40) 10^6/ul Hgb 14.0 (12.0-16.0) g/dl Hct 41 (35-47) % MCV 90 (80-97) fL MCH 31 (27-31) pg MCHC 34 (31-36) g/dl RDW 15 (10.5-15) % Plt Count 262 (150-450) 10^3/ul MPV 7.5 (7.4-10.4) um3 Neut % (Auto) 59.3 (38-83) % Lymph % (Auto) 25.7 (25-47) % Mingo % (Auto) 12.6 H (0-7) % Eos % (Auto) 1.4 (0-6) % Baso % (Auto) 1.0 (0-2) % Absolute Neuts (auto) 3.9 (1.5-7.7) 10^3/ul Absolute Lymphs (auto) 1.7 (1.0-4.8) 10^3/ul Absolute Monos (auto) 0.8 (0-0.8) 10^3/ul Absolute Eos (auto) 0.1 (0-0.6) 10^3/ul Absolute Basos (auto) 0.1 (0-0.2) 10^3/ul Absolute Nucleated RBC 0 10^3/ul Nucleated RBC % 0 Sodium 141 (135-145) mmol/L Potassium 4.0 (3.5-5.0) mmol/L Chloride 104 (101-111) mmol/L Carbon Dioxide 32 (22-32) mmol/L Anion Gap 5 (2-11) mmol/L BUN 16 (6-24) mg/dL Creatinine 0.90 (0.51-0.95) mg/dL Est GFR ( Amer) 73.5 (>60) Est GFR (Non-Af Amer) 60.7 (>60) BUN/Creatinine Ratio 17.8 (8-20) Glucose 97 (70-100) mg/dL Lactic Acid 1.4 (0.5-2.0) mmol/L Calcium 9.4 (8.6-10.3) mg/dL Total Bilirubin 0.50 (0.2-1.0) mg/dL AST 19 (13-39) U/L ALT 21 (7-52) U/L Alkaline Phosphatase 62 (34-104) U/L Troponin I 0.00 (<0.04) ng/mL B-Natriuretic Peptide ( - 100) pg/mL Total Protein 6.9 (6.4-8.9) g/dL Albumin 4.2 (3.2-5.2) g/dL Globulin 2.7 (2-4) g/dL Albumin/Globulin Ratio 1.6 (1-3) 05/15/18 Range/Units 17:24 WBC (3.5-10.8) 10^3/ul RBC (4.00-5.40) 10^6/ul Hgb (12.0-16.0) g/dl Hct (35-47) % MCV (80-97) fL MCH (27-31) pg MCHC (31-36) g/dl RDW (10.5-15) % Plt Count (150-450) 10^3/ul MPV (7.4-10.4) um3 Neut % (Auto) (38-83) % Lymph % (Auto) (25-47) % Mingo % (Auto) (0-7) % Eos % (Auto) (0-6) % Baso % (Auto) (0-2) % Absolute Neuts (auto) (1.5-7.7) 10^3/ul Absolute Lymphs (auto) (1.0-4.8) 10^3/ul Absolute Monos (auto) (0-0.8) 10^3/ul Absolute Eos (auto) (0-0.6) 10^3/ul Absolute Basos (auto) (0-0.2) 10^3/ul Absolute Nucleated RBC 10^3/ul Nucleated RBC % Sodium (135-145) mmol/L Potassium (3.5-5.0) mmol/L Chloride (101-111) mmol/L Carbon Dioxide (22-32) mmol/L Anion Gap (2-11) mmol/L BUN (6-24) mg/dL Creatinine (0.51-0.95) mg/dL Est GFR ( Amer) (>60) Est GFR (Non-Af Amer) (>60) BUN/Creatinine Ratio (8-20) Glucose (70-100) mg/dL Lactic Acid (0.5-2.0) mmol/L Calcium (8.6-10.3) mg/dL Total Bilirubin (0.2-1.0) mg/dL AST (13-39) U/L ALT (7-52) U/L Alkaline Phosphatase (34-104) U/L Troponin I (<0.04) ng/mL B-Natriuretic Peptide 100 ( - 100) pg/mL Total Protein (6.4-8.9) g/dL Albumin (3.2-5.2) g/dL Globulin (2-4) g/dL Albumin/Globulin Ratio (1-3) Result Diagrams: 05/15/18 17:24 05/15/18 17:24 Lab Statement: Any lab studies that have been ordered have been reviewed, and results considered in the medical decision making process. - Radiology CXR Xray Interpretation: No Acute Changes Radiology Interpretation Completed By: Radiologist - no radiographic evidence of acute cardiopulmonary disease, this report was reviewed by ed physician. - CT CTA chest/thorax CT Interpretation: Positive (See Comments) CT Interpretation Completed By: Radiologist - No pulmonary emboli, ascending aortic ectasia. This report was reviewed by ed physician - EKG 1422 Cardiac Rate: Bradycardia - rate of 56 bpm EKG Rhythm: Sinus Bradycardia EKG Interpretation: 1st degree AV block, nml IVCT, nml axis, nml QTc EKG Comparison: No Significant Change - compared with EKG from 07/26/2017 Re-Evaluation - Re-Evaluation First Eval Re-Evaluation Time: 21:12 Change: Improved Comment: BP is 169/80, no chest pain, pulse is 58. is concerned that this BP is higher than usual for the pt. Pt is given hydralazine 10mg po x 1 and advised to have definite follow up. They have a BP cuff at home and will check BP at home. They do not want to wait for full effect of hydralazine given in the ED. The patient and patients are agreeable to discharge. Chest Pain Course/Dx - Course Assessment/Plan: Patient is a 78 y/o F w/ c/o left anterior, non-radiating chest discomfort onsetting around 1400. Patient's , Mt, is present in the room and contributes most of HPI as patient has Alzheimer's. SOB and nausea is denied. Slight BROWN is noted earlier, since resolved. Some dizziness is reported and still present. PMHx of hyperlipidema. No Hx of blood clot, had breast CA for which she had a lumpectomy, no chemo or radiation. PSHx of tonsillectomy, ovarian cyst removal. She had a cardiac stress test done in 2011. Alcohol usage and drug usage is denied. FMHx of cardiac disease in father , mother with CA and Alzheimer's. In room, 171/73, 97 o2, pulse 54. Physical exam showed patient in minimal pain distress, chest pain is reproducible. During ED course, patient was given ASA 324 mg PO ONCE, Apresoline 10 mg PO. CTA chest/thorax: No pulmonary emboli, ascending aortic ectasia. CXR: no radiographic evidence of acute cardiopulmonary disease. Trop was negative, BNP 100, no concerning lab findings. EKG showed sinus bradycardia with rate of 56 BPM, nml IVCT, 1st degree AV block, nmrl axis, nml QTc, no significant change from EKG on 07/26/17. At 2111, patient reports chest pain has resolved. Pt and are given a copy of the CTA and advised of the aortic ectasia 3.9cm and to have definite follow up regarding this with Dr. Foster. Pt is discharged to home. Dx of chest pain, bradycardia, Alzheimer's dementia, hypertension in poor control, aortic ectasia. - Diagnoses Provider Diagnoses: Chest pain, Bradycardia, Hypertension, poor control, Aortic ectasia, Alzheimer' s disease Discharge - Sign-Out/Discharge Documenting (check all that apply): Patient Departure - discharge - Discharge Plan Condition: Stable Disposition: HOME Patient Education Materials: Chest Pain (ED), Hypertension (ED) Referrals: Sonali Foster MD [Primary Care Provider] - 1 Day Additional Instructions: We did not find a serious cause for your chest pain today. Your blood pressure is elevated. You were given one dose of hydralazine 10mg orally for BP 169/80, pulse 58. We have not given a prescription for this. You will need to see Dr. Foster regarding your blood pressure in the next one to two days, definitely within the next month to consider medication for this. Return to the ER if you have new or worsening pain. - Billing Disposition and Condition Condition: STABLE Disposition: Home - Attestation Statements Document Initiated by Preet: Yes Documenting Scribe: Aaron Oneil Provider For Whom Preet is Documenting (Include Credential): Mica Tabor MD Scribe Attestation: Aaron Metz , scribed for Mica Tabor MD on 05/17/18 at 0231. Scribe Documentation Reviewed: Yes Provider Attestation: The documentation as recorded by the Aaron aguiar accurately reflects the service I personally performed and the decisions made by me, Mica Tabor MD
[2018-05-15] MEDS ORDERED: Aspirin 81 mg CHEW TAB* 81 MG TAB.CHEW PO ONE (18:32)
[2018-05-15] MEDS ORDERED: Iohexol 350* (CONTRAST) 500 ML MDV IV ONE (18:50)
--- NOTE | 2018-05-15 19:53 | RAD ---
EXAM: CT Angiography Chest With Intravenous Contrast EXAM DATE/TIME: 05/15/2018 7:31 PM CLINICAL HISTORY: 78 years old, female; Signs and symptoms; Shortness of breath; Prior surgery; Surgery date: 6+ months; Surgery type: Right lumpectomy 2001; Additional info: Chest pain, HX breast CA TECHNIQUE: Axial computed tomographic angiography images of the chest with intravenous contrast using CT angiography protocol. All CT scans at this facility use at least one of these dose optimization techniques: automated exposure control; mA and/or kV adjustment per patient size (includes targeted exams where dose is matched to clinical indication); or iterative reconstruction. Coronal and sagittal reformatted images were created and reviewed. MIP and 3D reconstructed images were created and reviewed. CONTRAST: 61 ml of OMNIPAQUE 350 administered intravenously. COMPARISON: CTAC//AP W CTA CHEST// ABD PEL W 11/22/2011 9:12 AM FINDINGS: Pulmonary arteries: Pulmonary arteries are well opacified to the subsegmental branches. Normal caliber main pulmonary artery. No filling defects throughout the pulmonary artery tree. Aorta: Ectasia of the ascending aorta measuring up to 3.9 cm. No dissection or evidence of rupture. Lungs: There is minimal bibasilar atelectasis. No pulmonary nodules, masses, or consolidations. No bronchiectasis, peribronchial thickening, or luminal defects. Pleural space: Normal. No pneumothorax. No pleural effusion. Heart: There is mild atherosclerotic calcification of the coronary arteries. Thyroid: No thyroid nodules. Bones/joints: The thoracic spine demonstrates mild degenerative changes at multiple levels. No fractures. No suspicious bone lesions. Soft tissues: Normal. Lymph nodes: Normal. No enlarged lymph nodes. IMPRESSION: 1. No pulmonary emboli. 2. Ascending aortic ectasia. To contact [facility] with a general question: Operations Center - [phone] For direct physician to physician contact: Physician Hotline - [phone] [facility] ([facility] Facility ID #[id number])
[2018-05-15] MEDS ORDERED: hydrALAZINE TAB* 10 MG PO ONE (21:17)
[2018-05-15 21:50] VITALS: BP 181/88
== END 2018-05-15 21:51 | disposition home or self-care (01) ==
LOC: ED 13:57
DX: R07.89 Other chest pain (principal); I44.0 Atrioventricular block, first degree; R00.1 Bradycardia, unspecified; G30.9 Alzheimer's disease, unspecified; F02.80 Dementia in other diseases classified elsewhere, unspecified severity, without behavioral disturbance, psychotic disturbance, mood disturbance, and anxiety; I25.10 Atherosclerotic heart disease of native coronary artery without angina pectoris; I10 Essential (primary) hypertension; F32.9 Major depressive disorder, single episode, unspecified
CPT/HCPCS: 36415; 71046; 71275; 80053; 83605; 83880; 84484; 85025; 93005; 99283; A9270-GY; Q9967